=== PATIENT | male | born 1960 | race Caucasian/White ===

== ENCOUNTER 2020-05-29 08:14 | Emergency (ER) | payer BC, SELFPAY ==
--- NOTE | ~2020-05-29 | XR_ITS ---
EXAMINATION: XR knee LT 3V DATE: 05/29/2020 08:38 INDICATION: Left knee pain and swelling. TECHNIQUE: 3 views of left knee were obtained. COMPARISON: None. FINDINGS: Bone alignment is normal. No fracture. There is mild tricompartmental osteoarthritis. No kn ee joint effusion. There is subcutaneous soft tissue swelling overlying the tibial tubercle. IMPRESSION: 1. Mild left knee osteoarthritis. Reviewed, dictated and finalized at location A. 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
--- NOTE | 2020-05-29 08:20 | ED.GENADULT ---
HPI - General Adult General Chief complaint: Extremity Problem,Nontraumatic Stated complaint: lt knee pain Time Seen by Provider: 05/29/20 08:17 Source: patient Mode of arrival: ambulatory Limitations: no limitations History of Present Illness HPI narrative: 59 y/o male. PMH includes: HTN, HLD. Presents to clinic today, ambulatory via triage. CC is LT knee pain X past 1 week. He reports to have been kneeling on his knees while helping his son work on a vehicle , when he had a sharp pain shoot through his knee . Client states that since that time, he has had increased lower extremity swelling, redness, as well as pain shooting down his pantoja and bruising of his LT foot. He reports to have taken NSAIDs at home with mild relief. Pain is worse with prolonged ambulation or standing. No chest pain or dyspnea. No additional acute c/o upon PE. Related Data Home Medications Medication Instructions Recorded Confirmed aspirin 81 mg tablet,delayed 81 mg PO DAILY 01/30/20 02/19/20 release Allergies Allergy/AdvReac Type Severity Reaction Status Date / Time Penicillins Allergy Unknown Rash Verified 05/29/20 08:25 VICRYL STITCHES Allergy Unknown Unknown Uncoded 05/29/20 08:25 Review of Systems Review of Systems: Narrative: CONSTITUTIONAL: Denies fever, chills, sweats. EYES: Denies visual changes, redness, discharge. ENT: Denies rhinorrhea, congestion, sore throat, otalgia. CARDIOVASCULAR: Denies chest pain, palpitations, edema. RESPIRATORY: Denies dyspnea, wheezing, cough GASTROINTESTINAL: Denies abdominal pain, nausea, vomiting, diarrhea. GENITOURINARY: Denies dysuria, hematuria, abnormal discharge SKIN: Denies rash or itching. MUSCULOSKELETAL: Denies acute back pain, no myalgia. LT knee pain, redness, and swelling. NEUROLOGIC: Denies numbness, or focal weakness. PSYCHIATRIC: Denies anxiety or depression. All systems reviewed & are unremarkable except as noted in HPI and below (Above. ) [facility] Family History Family History Father Family history of elevated blood lipids Family history of coronary artery disease Family history of heart disease in male family member before age 55 Acute myocardial infarction Sibling Family history of malignant neoplasm of breast in first degree relative Family history of gallbladder disease Mother Family history of lung cancer Other Family history of cardiovascular disease Hypertension Social History Social History Smoking status: Current every day smoker Alcohol intake: current Exam Narrative: Exam Narrative: GENERAL: This is a well-nourished, well-developed patient, in no apparent distress. HEAD: normocephalic, atraumatic. EYES: PERRL. Sclera clear/white. Vision is grossly intact. EARS: External ears normal, auditory canals clear and without drainage, TMs normal without perforation. Hearing grossly intact. NOSE: External nose normal with no obvious nasal discharge, nares without redness, no rhinorrhea. THROAT: Mucous membranes moist, posterior pharynx clear. NECK: Neck supple, non-tender without lymphadenopathy, masses or thyromegaly. CARDIOVASCULAR: Regular rate and rhythm without murmurs, gallops, or rubs. Pedal pulse LLE palpable. RESPIRATORY: Clear to auscultation. Breath sounds equal bilaterally. No wheezes, rales, or rhonchi. GASTROINTESTINAL: Abdomen soft, non-tender, nondistended. Bowel sounds are active. No hepato-splenomegaly, or palpable masses. No guarding. SKIN: warm, intact with no suspicious lesions or rash, good texture and turgor. NEURO: awake, alert, and oriented to person, place and time. There were no obvious focal neurologic abnormalities. Steady gait EXTREMITIES: Patient is able to bear weight and ambulate with some pain. There is erythema overlying patella and distal patella. Area is cool to touch with what appears to be moderate joint
[2020-05-29 08:22] VITALS: BP 164/90; PULSE 86; RESP 16; TEMP 36.1; O2SAT 100
== END 2020-05-29 09:10 | disposition short-term general hospital (02) ==
PROVIDERS: Emergency Provider Nurse Practitioner Adult Health; PCP Family Medicine
DX: R60.0 Localized edema (principal); M25.562 Pain in left knee; S90.32XA Contusion of left foot, initial encounter; X58.XXXA Exposure to other specified factors, initial encounter; F17.200 Nicotine dependence, unspecified, uncomplicated; Z79.82 Long term (current) use of aspirin
CPT/HCPCS: 73562; 99213; G0463

== ENCOUNTER 2020-05-29 09:44 | Emergency (ER) | payer BC, SELFPAY ==
--- NOTE | ~2020-05-29 | US_ITS ---
EXAMINATION: US venous doppler [facility] EXAM DATE: 05/29/2020 10:27 INDICATION: Left leg swelling, bruising. TECHNIQUE: Multiple grayscale, color flow and Doppler images of the left lower extremity deep venous system were obtained and reviewed. There is no prior study for comparison. FINDINGS: The left common femoral, femoral and profunda veins demonstrate normal color flow, respirat ory variation, augmentation and compressibility. Compressibility, color flow confirmed within the le ft popliteal, posterior tibial, peroneal, and greater saphenous veins. IMPRESSION: 1. No left lower extremity deep venous thrombosis. Reviewed, dictated and finalized at location A. 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
[2020-05-29 10:17] VITALS: BP 169/84; PULSE 85; RESP 14; TEMP 36.3; O2SAT 98
--- NOTE | 2020-05-29 10:21 | ED.EXTPRO ---
HPI - Extremity Problem General Chief complaint: Extremity Problem,Nontraumatic <Pati De PA-C - Last Filed: 05/29/20 11:42> Stated complaint: leg pain/bruise/sent from [facility] <Pati De PA-C - Last Filed: 05/29/20 11:42> Time Seen by Provider: 05/29/20 10:06 <Pati De PA-C - Last Filed: 05/29/20 11:42> Source: patient <Pati De PA-C - Last Filed: 05/29/20 11:42> Mode of arrival: ambulatory <EMPERATRIZ Jeong Last Filed: 05/29/20 11:42> Limitations: no limitations <EMPERATRIZ Jeong Last Filed: 05/29/20 11:42> History of Present Illness HPI Narrative: Patient is a 59 y/o male with HTN, HLD with CC of LT knee pain for 1 week. He reports to have been kneeling on his knees while helping his son work on a vehicle , when he had a sharp pain shoot through his knee . He reports increased lower extremity swelling, redness, as well as pain shooting down his pantoja and bruising of his LT foot over the past week. He reports taking NSAIDs at home with mild relief of his discomfort. Pain worsens with prolonged ambulation and standing. Patient admits that he stands constantly throughout the day and is constantly climbing and standing due to working at a [place]. He states he very rarely sits or elevates his legs. Patient denies chest pain, shortness of breath, palpitations, lethargy, dizziness, fever, chills, nausea, vomiting, diarrhea. Patient reports taking a baby aspirin daily. Patient denies prior history of DVT or PE. Patient was sent to the ER for DVT evaluation after knee xray was negative for acute findings. <EMPERATRIZ Jeong Last Filed: 05/29/20 11:42> Related Data Home medications: Home Medications Medication Instructions Recorded Confirmed aspirin 81 mg tablet,delayed 81 mg PO DAILY 01/30/20 05/29/20 release <EMPERATRIZ Jeong Last Filed: 05/29/20 11:42> Allergies/Adverse reactions: Allergies Allergy/AdvReac Type Severity Reaction Status Date / Time Penicillins Allergy Unknown Rash Verified 05/29/20 08:25 VICRYL STITCHES Allergy Unknown Unknown Uncoded 05/29/20 08:25 <Pati De PA-C - Last Filed: 05/29/20 11:42> Review of Systems Review of Systems: Narrative: CONSTITUTIONAL: Denies fever, chills, or sweats. EYES: Denies visual changes, redness, or discharge. ENT: Denies rhinorrhea, congestion, sore throat, or otalgia. CARDIOVASCULAR: Denies chest pain, palpitations, or edema. RESPIRATORY: Denies cough or dyspnea. GASTROINTESTINAL: Denies abdominal pain, nausea, vomiting, or diarrhea. GENITOURINARY: Denies dysuria or hematuria. SKIN: Denies rash or itching. MUSCULOSKELETAL: Reports left leg swelling and pain Denies back pain, myalgia, or joint pain NEUROLOGIC: Denies headache, numbness, dizziness, or weakness. PSYCHIATRIC: Denies anxiety or depression. <Pati De PA-C - Last Filed: 05/29/20 11:42> PMFSH Family History Family History: Family History Father Family history of elevated blood lipids Family history of coronary artery disease Family history of heart disease in male family member before age 55 Acute myocardial infarction Sibling Family history of malignant neoplasm of breast in first degree relative Family history of gallbladder disease Mother Family history of lung cancer Other Family history of cardiovascular disease Hypertension <Pati De PA-C - Last Filed: 05/29/20 11:42> Social History Social History: Social History Smoking status: Current every day smoker Alcohol intake: current <Pati De PA-C - Last Filed: 05/29/20 11:42> Exam Narrative: Exam Narrative: GENERAL: Well-appearing, well-nourished, and in no acute distress. HEAD: Normocephalic, atraumatic. EYES: PERRLA and EOMI. ENT: Nares clear, no rhinorrhea or epistaxis. Mu
[2020-05-29 11:22] VITALS: RESP 18
== END 2020-05-29 11:23 | disposition home or self-care (01) ==
PROVIDERS: Emergency Provider General Practice; PCP Family Medicine
DX: R60.0 Localized edema (principal); I10 Essential (primary) hypertension; E78.5 Hyperlipidemia, unspecified; Z79.82 Long term (current) use of aspirin; F17.200 Nicotine dependence, unspecified, uncomplicated
CPT/HCPCS: 93971; 99284

== ENCOUNTER → 2020-10-30 07:56 | Outpatient (CLI) | payer BC, SELFPAY ==
--- NOTE | ~2020-10-30 | CT_ITS ---
EXAMINATION: CT lung screening DATE: 10/30/2020 08:42 INDICATION: Screening for lung cancer, personal hx of tobacco dependence TECHNIQUE: Computed tomography (CT) of the chest was performed without intravenous contrast. Addition al 3D reconstructions utilizing coronal maximum intensity projection (MIP) were performed. Automated exposure control and iterative reconstruction technique were employed. The dose-length product was 13 0.99 mGy-cm. COMPARISON: None FINDINGS: There are a few tiny calcified nodule in the right upper and lower lobes consistent with old granulom atous disease. Small cluster of a few 3 mm smaller solid and subselected nodules at the left apex. No pneumonia, pulmonary edema, pleural effusion or pneumothorax. Heart size is normal. No pericardial e ffusion. Atherosclerotic coronary artery calcifications. Thoracic aorta is normal in caliber. No path ologically enlarged thoracic lymphadenopathy. Diffuse hepatic steatosis. Mild thoracic spondylosis. M inimal likely physiologic anterior wedging at T12 and L1. IMPRESSION: 1. . Lung-RADS category 2: Benign appearance or behavior. Continue annual screening with noncontrast low-dose chest CT in 12 months. Reviewed, dictated and finalized at location A. IMPRESSION: 1. . Lung-RADS category 2: Benign appearance or behavior. Continue annual scree cesia with noncontrast low-dose chest CT in 12 months.
--- NOTE | ~2020-10-30 | XR_ITS ---
XR hip LT min 3V w AP pelvis DATE: 10/30/2020 08:54 INDICATION: Left hip pain TECHNIQUE: AP pelvis. AP and lateral views of left hip COMPARISON: None FINDINGS: Degenerative disc disease at L4-5 and L5-S1. No pelvic fracture or bone destruction. The pubic symphysis and sacroiliac joints are intact. Hip ekta nt spaces are symmetric. No left hip fracture or dislocation, avascular necrosis or bone destruction. Osteopenia. IMPRESSION: Osteopenia No pelvic or left hip significant radiographic abnormality Reviewed, dictated and finalized at location A.
--- NOTE | ~2020-10-30 | MR_ITS ---
EXAMINATION: MR renal wo con DATE: 10/30/2020 08:33 INDICATION: Complex left renal cyst. TECHNIQUE: Magnetic resonance imaging (MRI) of the abdomen was performed without intravenous contrast . Sequences included coronal T2-weighted SS-FSE, coronal and axial FS 2D-FIESTA, axial STIR FSE, axi al T2-weighted SS-FSE, axial T2-weighted FS SS-FSE, axial diffusion-weighted SE, axial dual-echo T1-w eighted FSPGR, and axial and coronal T1-weighted LAVA. Postcontrast axial T1-weighted LAVA images wer e obtained in a time course. Postcontrast coronal T1-weighted LAVA images were obtained. COMPARISON: MR abdomen dated 03/01/2017 and 01/01/2016 FINDINGS: Heart size is normal. No pericardial or pleural effusion. No significant interval change in multiple scattered subcentimeter T2 hyperintense cysts scattered throughout the liver. Pancreas, spleen and bi lateral adrenal glands are normal. Also without significant interval change in multiple bilateral ayo ogeneous and T2 hyperintense renal cysts. The largest in the right kidney measures 1.5 cm. The larges t in the left kidney measures 2.8 cm as part of a cluster of renal cysts versus component of a larger complex cystic mass together measuring 5.8 x 3.0 cm with identical measurements on the prior studies when including the largest cystic component. No interval change in size, appearance or configuration of the collection cystic lesions or of the multiple thin intervening cysts with no evident solid nod ular soft tissue component. Multiple diverticula along the visualized portion of the colon without ad jacent inflammatory change to suggest diverticulitis. No bowel obstruction. No pathologically enlarge d abdominal lymphadenopathy. Normal bone marrow signal throughout. IMPRESSION: 1. No change since 01/01/2016 in a 5.8 x 3.0 cm collection of cysts versus Bosniak 2F complex cystic m ass in the left kidney. Reviewed, dictated and finalized at location A. IMPRESSION: 1. No change since 01/01/2016 in a 5.8 x 3.0 cm collection of cysts versus Bosni ak 2F complex cystic mass in the left kidney.
== END ==
PROVIDERS: PCP Family Medicine; Visit Provider Family Medicine
DX: M25.552 Pain in left hip (principal); Z12.2 Encounter for screening for malignant neoplasm of respiratory organs; Z87.891 Personal history of nicotine dependence; N28.1 Cyst of kidney, acquired
CPT/HCPCS: 71271; 73502; 74181

== ENCOUNTER → 2020-11-25 06:57 | Outpatient (CLI) | payer BC, SELFPAY ==
--- NOTE | ~2020-11-25 | MR_ITS ---
EXAMINATION: MR hip LT wo con DATE: 11/25/2020 07:58 INDICATION: Left hip pain. TECHNIQUE: Magnetic resonance imaging (MRI) of the left hip was performed without intravenous contras t. Sequences included axial and coronal PD-weighted FS FSE and axial T1-weighted FSE of the pelvis. S equences of the hip included 2D FIESTA, T1-weighted fast GRE, and axial, coronal, and sagittal PD-bipin ghted FS FSE. COMPARISON: Left hip radiographs 10/30/2020, abdomen MRI 10/30/2020 FINDINGS: Bones/cartilage: There is 6 degrees levocurvature of lumbar spine. There is mild chronic height loss of L4 and L5 vert ebral bodies. No acute fracture. There is mild osteoarthritis of the hips. Small [id number] images of left hip demonstrate partial thickness cartilage loss. Labrum: There is a tear of the left acetabular labrum. Fluid: There is no hip joint effusion. There is mild bilateral trochanteric bursitis. Soft tissues: There is mild tendinopathy of the right hamstring origin moderate tendinopathy of the left hamstring origin. The iliopsoas tendons are normal. The gluteus minimus and gluteus medius tendons are normal. There is a small right inguinal hernia containing fat. IMPRESSION: 1. Mild osteoarthritis of the hips. 2. Tear of the left acetabular labrum. Reviewed, dictated and finalized at location A.
== END ==
PROVIDERS: PCP Family Medicine; Visit Provider Family Medicine
DX: M16.0 Bilateral primary osteoarthritis of hip (principal); S73.102A Unspecified sprain of left hip, initial encounter
CPT/HCPCS: 73721

== ENCOUNTER 2021-01-27 07:30 | Outpatient (RCR) | payer BC, SELFPAY ==
--- NOTE | 2020-12-28 15:43 | PTOPEVAL ---
Thank you for referring Theodore Avalos to [facility].? The patient is scheduled to be seen for therapy? 1 x/week for 5 weeks. Please review, sign, date and return this plan of care RADHA. I agree with and certify that the following plan of care is medically necessary. Referring Physician Date Attending Provider: Julio Ham MD Evaluation Information Diagnosis low back pain Onset years Additional Evaluation Detail States he has been dealing with pain most of his life. He works for a [email or web address] with very active and physical job. He is also very activity at home. Subjective Information He reports he has been having Query Text:As Reported By Patient/ low back issues for years that Family has progressed into left hip and posterior leg. He has increased pain with driving and walking. HE c/o numbness of baldomero feet. He also c/o intermittent knee pain. He has increased pain with turning motions. He has increased pain with bent over task. He has increased pain with lifting. Denies any exercise or stretching program. Diagnostic Tests X-Rays For This Problem Yes: Degenerative disc disease at L4-5 and L5-S1 MRI For This Problem Yes: tear of the left acetabular labrum Previous Treatments Previous Treatments For This Problem 6 yrs Pain Assessment Self Report Pain Assessment Left Hip(s) Reported Pain Level 1 Pain Description Aching,Dull,Radiating Pain Frequency Chronic,Continuous Greatest Pain Intensity 2 Pain Aggravating Factors Bending,Exercise/Activity, Lifting,Walking,Weight Bearing /Standing Bilateral Lower Back Reported Pain Level 0 Pain Frequency Chronic,Continuous Greatest Pain Intensity 3 Pain Aggravating Factors Bending,Exercise/Activity, Lifting Cervical and Lumbar ROM Lumbar Flexion Active Floor: Hands to: Lumbar Comments 75% trunk lateral flex with poor movement, 100% flex/ext with pain. Cervical and Lumbar Muscle Testing Lumbar Strength Upper Abdominal Strength 3 Fair Lower Abdominal Strength 3 Fair Upper Back Extension
--- NOTE | 2021-01-27 11:03 | PTOPEVAL ---
Thank you for referring Theodore Avalos to [facility].? Theodore has received 5 therapy visits to address his hip and back pain. He reports improved symptoms but continued hip pain which causes severe pain and weakness of left LE. Demonstrate improved body awareness, trunk and hip strength and joint motion without increased symptoms. He demonstrates indep with his HEP at this time. His goals are partially achieved. Will plan to DC skilled therapy services with Theodore to continue with home program. Please review, sign, date and return this discharge summary RADHA. I agree with and certify that the following plan of care is medically necessary. Referring Physician Date Attending Provider: Julio Ham MD Physical therapy discharge note Diagnosis low back pain Onset years Additional Evaluation Detail States he has been dealing with pain most of his life. He works for a [employer] with very active and physical job. He is also very activity at home. 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 His hip also went out when walking in the house. He does not fall, but he has no power in the leg. Denies any radiating numbness/ tingling into the left LE. He cont to have increased pain with driving and walking, and turning motions. He has increased pain with bent over task. His symptoms are very inconsistent with no pain or limitations for days or months, then severe pain that limits all activities. He tries to avoid heavy lifting whenever possible. He tends to use his right LE for most activities to avoid over use or increased strain on left LE. He is performing his HEP 3-4x/ wk. Pain Assessment Self Report Pain Assessment Left Hip(s) Reported Pain Level 0 Pain Description Aching,Dull Pain Frequency Chronic Greatest Pain Intensity 7 Pain Aggravating Factors Bending,Exercise/Activity, Walking Bilateral Lower Back Reported Pain Level 2 Pain Description Aching Pain F
== END 2021-03-17 11:50 | disposition home or self-care (01) ==
LOC: ANHPT 07:30
PROVIDERS: PCP Family Medicine; Visit Provider Orthopaedic Surgery
DX: M54.16 Radiculopathy, lumbar region (principal)
CPT/HCPCS: 97014; 97110; 97140; 97162; 97530; G0283

== ENCOUNTER → 2021-02-23 07:32 | Outpatient (CLI) | payer BC, SELFPAY ==
--- NOTE | ~2021-02-23 | MR_ITS ---
EXAMINATION: MR lumbar spine wo con DATE: 02/23/2021 08:40 INDICATION: Low back pain TECHNIQUE: Magnetic resonance imaging (MRI) of the lumbar spine was performed without intravenous con trast. Sequences included sagittal T2-weighted FSE, sagittal T2-weighted FS FSE, sagittal T1-weighted FSE, and axial T2-weighted FSE. COMPARISON: Lumbar spine radiographs dated 02/18/2021 FINDINGS: Alignment is normal. Vertebral body heights are normal. Normal marrow signal. 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 Disc heights are normal with mild disc desiccation at L4-L5. The conu s medullaris terminates at L2. There is normal signal in the caudal spinal cord. Paravertebral soft t issues are unremarkable. The following disc levels are specifically discussed: T12-L1: The disc does not extend beyond the endplate margin. There is minimal bilateral facet joint o steoarthritis. There is no neural foraminal stenosis. There is no central canal stenosis. L1-L2: The disc does not extend beyond the endplate margin. There is mild bilateral facet joint osteo arthritis. There is no neural foraminal stenosis. There is no central canal stenosis. L2-L3: Minimal left foraminal zone disc protrusion. There is mild bilateral facet joint osteoarthriti s. There is mild left neural foraminal stenosis. There is no central canal stenosis. L3-L4: Disc is minimally bulging There is moderate bilateral facet joint osteoarthritis. There is mil d bilateral neural foraminal stenosis. There is mild central canal stenosis. L4-L5: Disc is mildly bulging. There is moderate left and mild to moderate right facet joint osteoart hritis. There is moderate bilateral neural foraminal stenosis. There is mild central canal stenosis. L5-S1: Disc is minimally bulging. There is mild to moderate left and severe right facet joint osteoar thritis. There is mild right and mild to moderate left neural foraminal stenosis. There is no central canal stenosis. IMPRESSION: 1. Mild lumbar spondylosis. Reviewed, dictated and finalized at location A. IMPRESSION: 1. Mild lumbar spondylosis.
== END ==
PROVIDERS: PCP Family Medicine; Visit Provider Orthopaedic Surgery
DX: M47.896 Other spondylosis, lumbar region (principal)
CPT/HCPCS: 72148

== ENCOUNTER 2021-02-26 04:41 | Day surgery (SDC) | payer BC, SELFPAY ==
[2021-02-16 14:24] VITALS: BMI 28.3
[2021-02-26 06:32] VITALS: BP 164/73; PULSE 84; RESP 18; TEMP 36; O2SAT 98; BMI 28.1
[2021-02-26] MEDS: LACTATED RINGERS 1,000 ML 150 ML IV CONT (06:51)
--- NOTE | 2021-02-26 06:56 | WPDANESEPPF ---
Anes - Initial Pre Proc Eval Procedure: Operation Date: 02/26/21 07:30 Proposed Procedures p Screening Colonoscopy - Carter Nelson MD Date/Time: 02/26/21 06:56 Surgeon: Carter Nelson MD Pre Op Diagnosis: neoplasm screening Patient Data Age: 60 Gender: M Height: 1.8 m Weight: 91.5 kg Last Vital Signs Temp 36.0 C L 02/26/21 06:32 Pulse 84 02/26/21 06:32 Resp 18 02/26/21 06:32 BP 164/73 H 02/26/21 06:32 Pulse Ox 98 02/26/21 06:32 Allergies Allergy/AdvReac Type Severity Reaction Status Date / Time Penicillins Allergy Unknown Rash Verified 02/26/21 06:30 VICRYL STITCHES Allergy Unknown Unknown Uncoded 02/26/21 06:30 Home Medications Medication Instructions Recorded Confirmed Type aspirin 81 mg tablet,delayed 81 mg PO DAILY 01/30/20 02/18/21 History release atorvastatin 20 mg PO DAILY 02/16/21 02/18/21 History lisinopril 10 mg PO DAILY 02/16/21 02/18/21 History Patient hx anesthesia problems: none Family hx anesthesia problems: none PMFSH Past Medical History Medical History (Updated 02/18/21 @ 08:22 by Julio Ham MD) Abscess Arthritis, lumbar spine Infrapatellar bursitis of left knee Left leg pain Neoplasm of uncertain behavior of skin Obesity Strain of left soleus muscle Family History Family History Father Family history of elevated blood lipids Family history of coronary artery disease Family history of heart disease in male family member before age 55 Acute myocardial infarction Sibling Family history of malignant neoplasm of breast in first degree relative Family history of gallbladder disease Mother Family history of lung cancer Other Family history of cardiovascular disease Hypertension Social History Social History Smoking packs per day: 1.5 Smoking cigarettes per day: 30.0 Years smoked: 47 Smoking pack-years: 70.50 Smoking status: Current every day smoker Tobacco type: cigarettes Alcohol intake: current Drinks per week: 38 Living arrangements: alone Additional occupation/education comments: [facility] [employer] Gender identity (if verbalized by the patient): Male Spiritual care concerns: No Anes - Eval Final PreProcedure Day of Procedure 02/26/21 06:56 Patient weight: overweight Heart: regular rate and rhythm Lungs: clear to auscultation and normal air movement Airway: Mallampati scale class II Neurological: alert and oriented Last oral intake: >/= 8 hours ASA classification: II Emergent: no Anesthetic plan: proceed Anesthesia type and monitoring: general GIVS Informed Consent: The patient's anesthetic plan and its attendant risks and benefits were discussed with the patient/family/POA. Questions were solicited and answers provided to the satisfaction of the patient/family/POA.
--- NOTE | 2021-02-26 07:04 | P.HP_ITS ---
History of Present Illness History of Present Illness Consent: Risks, benefits, and alternatives have been discussed and questions answered. Patient agrees to proceed with procedure. Chief complaint: neoplasm screening Narrative: Theodore Avalos is a 60 year old male referred for colon cancer screening Review of Systems Review of Systems: All systems reviewed & are unremarkable except as noted in HPI and below PMFSH Past Medical History Medical History Abscess Arthritis, lumbar spine Infrapatellar bursitis of left knee Left leg pain Neoplasm of uncertain behavior of skin Obesity Strain of left soleus muscle Family History Family History Father Family history of elevated blood lipids Family history of coronary artery disease Family history of heart disease in male family member before age 55 Acute myocardial infarction Sibling Family history of malignant neoplasm of breast in first degree relative Family history of gallbladder disease Mother Family history of lung cancer Other Family history of cardiovascular disease Hypertension Social History Social History Smoking packs per day: 1.5 Smoking cigarettes per day: 30.0 Years smoked: 47 Smoking pack-years: 70.50 Smoking status: Current every day smoker Tobacco type: cigarettes Alcohol intake: current Drinks per week: 38 Living arrangements: alone Additional occupation/education comments: [employer] Gender identity (if verbalized by the patient): Male Spiritual care concerns: No Meds Home Medications and Allergies Home Medications Medication Instructions Recorded Confirmed Type aspirin 81 mg tablet,delayed 81 mg PO DAILY 01/30/20 02/18/21 History release atorvastatin 20 mg PO DAILY 02/16/21 02/18/21 History lisinopril 10 mg PO DAILY 02/16/21 02/18/21 History Allergies Allergy/AdvReac Type Severity Reaction Status Date / Time Penicillins Allergy Unknown Rash Verified 02/26/21 06:30 VICRYL STITCHES Allergy Unknown Unknown Uncoded 02/26/21 06:30 Vital Signs Vital Signs - 24 hr 02/26/21 06:32 Temperature 36.0 C L Pulse Rate 84 Respiratory Rate 18 Blood Pressure 164/73 H Pulse Oximetry 98 Exam Const: General: alert Orientation/consciousness: patient oriented x3 Resp: Auscultation: clear to auscultation bilaterally Cardio: Rhythm: regular rhythm GI: GI Palp: Yes Soft to palpation and No Tenderness to palpation present (GI) Neuro: General: patient oriented x3 Assessment and Plan Assessment and plan (1) Colon cancer screening: Code(s): Z12.11 - Encounter for screening for malignant neoplasm of colon Status: Acute Assessment and Plan: Colonoscopy with possible biopsy or polypectomy or cautery or injection of substances.
[2021-02-26 07:56] VITALS: BP 100/52; PULSE 76; RESP 26; O2SAT 95
[2021-02-26 08:06] VITALS: BP 126/67; PULSE 71; RESP 37; O2SAT 96
[2021-02-26 08:16] VITALS: BP 119/78; PULSE 69; RESP 34; O2SAT 97
== END 2021-02-26 08:26 | disposition home or self-care (01) ==
PROVIDERS: PCP Family Medicine; Visit Provider Internal Medicine Gastroenterology
PROC: 0DJD8ZZ Inspection of Lower Intestinal Tract, Via Natural or Artificial Opening Endoscopic (ICD-10-PCS; CPT 45378; principal; 2021-02-26 07:30)
DX: Z12.11 Encounter for screening for malignant neoplasm of colon (principal); D12.2 Benign neoplasm of ascending colon; D12.5 Benign neoplasm of sigmoid colon; K57.30 Diverticulosis of large intestine without perforation or abscess without bleeding; M47.816 Spondylosis without myelopathy or radiculopathy, lumbar region; E66.9 Obesity, unspecified; F17.200 Nicotine dependence, unspecified, uncomplicated
CPT/HCPCS: 45385; 88305; J2704; J7120

== ENCOUNTER → 2021-03-08 07:42 | Outpatient (CLI) | payer BC, SELFPAY ==
--- NOTE | ~2021-03-08 | US_ITS ---
EXAMINATION: US aorta DATE: 03/08/2021 08:08 INDICATION: Atherosclerotic aorta TECHNIQUE: Grayscale, color Doppler, and pulsed Doppler images of the aorta and common iliac arteries were obtained. COMPARISON: None. FINDINGS: The proximal aorta measures 2.9 cm in AP diameter. The mid aorta measures 2.4 cm. The distal aorta me asures 2.4 cm. The right common iliac artery measures 9 mm. The left common iliac artery measures 9 m m. IMPRESSION: 1. Normal caliber abdominal aorta. Reviewed, dictated and finalized at location A.
== END ==
PROVIDERS: PCP Family Medicine; Visit Provider Family Medicine
DX: I70.0 Atherosclerosis of aorta (principal)
CPT/HCPCS: 76775

== ENCOUNTER → 2021-08-02 12:14 | Outpatient (CLI) | payer OTHER, SELFPAY ==
--- NOTE | ~2021-08-02 | DEXA_ITS ---
Bone Density Report Name: JENNY FOREMAN Age: 61 Sex: Male Ethnicity: White Date of : 1960 Indication: prior fracture; Referring Provider: LOUIS SUAZO Study: Bone densitometry was performed. Exam Date: August 02, 2021 Accession number: [id number] Bone Density: Region BMD T-score Z-score Classification AP Spine (L1-L4) 1.068 -0.2 0.5 Normal Femoral Neck (Left) 0.746 -1.4 -0.4 Osteopenia Total Hip (Left) 1.007 -0.2 0.3 Normal Femoral Neck (Right) 0.800 -1.0 0.0 Normal Total Hip (Right) 0.987 -0.3 0.2 Normal Total Hip Mean 0.997 -0.3 0.3 Normal World Health Organization criteria for BMD impression classify patients as: Normal (T-score at or above -1.0), Osteopenia (T-score between -1.0 and -2.5), or Osteoporosis (T-score at or below -2.5). 10-year Fracture Risk(1): Major Osteoporotic Fracture 11% Hip Fracture 2.6% Reported Risk Factors: [place] (), Neck BMD=0.746, BMI=29.8, previous fracture, smoking, alcohol use (1) FRAX(R) Version 3.08. Fracture probability calculated for an untreated patient. Fracture probability may be lower if the patient has received treatment. Clinical Information Provided by Patient: Has had a low trauma fracture Smokes Has 3 or more alcoholic drinks per day Has used the following medications: Vitamin D Patient maximum height was 71 No regular weight bearing exercise Does not regularly consume dairy products Drinks caffeinated beverages Impression: The patient has low bone mass, based on the Left Femoral Neck T-score. The patient has an estimated ten-year risk of hip fracture of 2.6% and an estimated ten-year risk of major fracture of 11%, based on the WHO FRAX algorithm. The patient has risk factors, including: smoking, excessive alcohol use, previous fracture. Discussion: BONE DENSITY IS LOW AT ONE OR MORE SKELETAL SITES. This patient's lowest T-score is low at one or more skeletal sites. It meets the World Health Organization's (WHO) criteria for ?low bone mass? (T-score between -1.0 and -2.5). The patient's 10-year risk of fracture as calculated by FRAX is less than the threshold where pharmacological therapy is recommended by the National Osteoporosis Foundation (NOF). However, all treatment decisions require clinical judgment and consideration of individual patient factors, including patient preferences, comorbidities, previous drug use, risk factors not captured in the FRAX model (e.g., frailty, falls, vitamin D deficiency, increased bone turnover, interval significant decline in bone density) and possible under or overestimation of fracture risk by FRAX. The patient should follow a healthful lifestyle (good nutrition with adequate calcium and vitamin D, and appropriate weight-bearing exercise). Follow-Up: Consider repeating this study
== END ==
PROVIDERS: PCP Family Medicine; Visit Provider Family Medicine
DX: M85.88 Other specified disorders of bone density and structure, other site (principal); E55.9 Vitamin D deficiency, unspecified
CPT/HCPCS: 77080

== ENCOUNTER 2021-09-08 08:59 | Outpatient (CLI) | payer OTHER, SELFPAY ==
--- NOTE | 2021-09-08 09:08 | EST_ITS ---
Patient Info Name: Theodore Avalos Age: 61 years : 1960 Gender: Male Ht: 71 in Wt: 205 lbs BSA: 2.18 m2 HR: 114 bpm BP: 131 / 79 mmHg Technical Quality: Fair Exam Date: 09/08/2021 9:44 AM Exam Location: [facility] Exam Room: [facility] Patient Status: Outpatient Admit Date: 09/08/2021 Staff Ordering Physician: Olivia Godo MD Packaging Sales Representative: Melissa Damon RDCS Attending Provider: Olivia Good MD Exercise Technologist: Paulette Plascencia CT Exercise Physician: Chuckie Angeles DO Exam Type: CA stress echo Study Info Indications R06.02 - Shortness of breath Treadmill exercise stress echocardiogram is performed. Summary 1. 1. Negative Edson exercise stress test for ischemic ST changes by ECG criteria. However he achieved only 78% MPHR for age group which reduces sensitivity of the test. He took his last Metoprolol dose at midnight. 2. 2. Reduced functional capacity, achieving 9 METs of workload. 3. 3. Appropriate HR response to exercise. 4. 4. Appropriate HR recovery at 1 minute post exercise. 5. 5. Negative stress echocardiogram for ischemia by wall motion analysis. Fixed basal inferior and basal posterior wall hypokinesis suggest prior infarct or scar. 6. 6. Patient informed of the above results. Stress Echo Findings Left Ventricle Basal posterior and basal inferior vivar are hypokinetic. Appropriate increase in LV endocardial thickening with systole and appropriate augmentation of contractility with systole. Left Ventricle Normal LV systolic function, EF 55%. Basal posterior and basal inferior wall are hypokinetic. Protocol: Edson Stress ECG Details Stage: REST Duration (min): 2 min : 2 sec Speed (mph): 0.0 Grade (%): 0 HR (bpm): 78 SBP (mmHg): 131 DBP (mmHg): 79 METS: --- Stage: REST Duration (min): 26 min : 11 sec Speed (mph): 0.0 Grade (%): 0 HR (bpm): 74 SBP (mmHg): 131 DBP (mmHg): 79 METS: --- Stage: STAGE 1 Duration (min): 1 min : 0 sec Speed (mph): 1.7 Grade (%): 10 HR (bpm): 87 SBP (mmHg): 131 DBP (mmHg): 79 METS: --- Stage: STAGE 1 Duration (min): 2 min : 0 sec Speed (mph): 1.7 Grade (%): 10 HR (bpm): 89 SBP (mmHg): 131 DBP (mmHg): 79 METS: --- Stage: STAGE 1 Duration (min): 3 min : 0 sec Speed (mph): 1.7 Grade (%): 10 HR (bpm): 93 SBP (mmHg): 131 DBP (mmHg): 79 METS: --- Stage: STAGE 2 Duration (min): 1 min : 0 sec Speed (mph): 2.5 Grade (%): 12 HR (bpm): 95 SBP (mmHg): 178 DBP (mmHg): 95 METS: --- Stage: STAGE 2 Duration (min): 2 min : 0 sec Speed (mph): 2.5 Grade (%): 12 HR (bpm): 104 SBP (mmHg): 173 DBP (mmHg): 87 METS: --- Stage: STAGE 2 Duration (min): 3 min : 0 sec Speed (mph): 2.5 Grade (%): 12 HR (bpm): 106 SBP (mmHg): 173 DBP (mmHg): 87 METS: --- Stage: STAGE 3 Duration (min): 1 min : 0 sec Speed (mph): 3.4 Grade (%): 14 HR (bpm): 113 SBP (mmHg): 206 DBP (mmHg): 85 METS
== END 2021-09-08 09:00 | disposition home or self-care (01) ==
LOC: ANHCARD 09:00
PROVIDERS: PCP Family Medicine; Visit Provider Family Medicine
DX: E78.2 Mixed hyperlipidemia (principal); R06.02 Shortness of breath; R68.89 Other general symptoms and signs; F17.210 Nicotine dependence, cigarettes, uncomplicated; I10 Essential (primary) hypertension
CPT/HCPCS: 93351

== ENCOUNTER 2021-09-10 08:07 | Outpatient (CLI) | payer OTHER, SELFPAY ==
--- NOTE | ~2021-09-10 | US_ITS ---
EXAMINATION: US arterial ankle brachial ind DATE: 09/10/2021 08:39 INDICATION: Atherosclerotic heart disease of knik coronary arteries. Weakness in the legs. TECHNIQUE: Segmental pressures and plethysmographic and Doppler waveforms of the brachial and lower e xtremity arteries were obtained. COMPARISON: None. FINDINGS: Right and left brachial artery pressures of 141 mm Hg and 125 mm Hg, respectively, are concordant (no rmal difference <= 30 mmHg). The right ankle-brachial index (PHONG) is 1.18 (normal >= 0.9-1.0). The right great toe-brachial index (TBI) is 0.83 (normal >= 0.65). Arterial Doppler waveforms are biphasic at the ankle. The left PHONG is 1.10. The left TBI is 0.75. Arterial Doppler waveforms are biphasic at the ankle. IMPRESSION: 1. No significant arterial occlusive disease. Reviewed, dictated and finalized at location A. [employer]
== END 2021-09-10 08:08 | disposition home or self-care (01) ==
PROVIDERS: PCP Family Medicine; Visit Provider Family Medicine
DX: I25.10 Atherosclerotic heart disease of native coronary artery without angina pectoris (principal); I73.9 Peripheral vascular disease, unspecified; Z82.49 Family history of ischemic heart disease and other diseases of the circulatory system
CPT/HCPCS: 93922

== ENCOUNTER 2021-09-13 08:02 | Outpatient (CLI) | payer OTHER, SELFPAY ==
--- NOTE | 2021-09-13 15:36 | WPDPFTINT ---
PFT Procedure Performed PFT Procedure Performed Spirometry with Pre/Post Bronchodilator Plethysmography (Lung Vol) Diffusing Cap (DLCO) Flow Vol Loop PFT Interpretation This is a pulmonary function test with pre and post-bronchodilator spirometry, plethysmography and diffusing capacity. The test was performed and results interpreted in accordance with the 2019 and 2005 ATS/ERS Task Force guidelines respectively using the Global Lung Function Initiative-2012 reference equations. Patient demonstrated good effort and cooperation. Reproducibility criteria were met. The quality of the pre bronchodilator spirometry maneuver was Grade B and post bronchodilator spirometry maneuver was Grade A. Findings: Spirometry: The contour the expiratory flow tracing demonstrates and notched pattern in 1 of 3 efforts. The contour the expiratory flow tracing demonstrates and notched pattern in 3 of 3 post bronchodilator efforts. The contour the inspiratory flow tracing is normal. There is decreased maximal expiratory airflow at all lung volumes with concave expiratory flow tracing. The pre bronchodilator FVC is 3.17 L, 68% predicted. The pre bronchodilator FEV1 is 1.24 L, 35% predicted. The FEV1: FVC ratio is 39%. The post bronchodilator FVC is 3.79 L, representing a 19% increase. The post bronchodilator FEV1 is 1.61 L, representing a 30% increase. The post bronchodilator FEV1: FVC ratio is 42%. Plethysmography: The total lung capacity is 8.29 L, 115% predicted. The functional residual capacity 6.33 L, 168% predicted. The residual volume is 5.09 L, 217% predicted. Diffusing capacity: The diffusion capacity unadjusted for hemoglobin is 21.3, 76% predicted. The diffusing capacity adjusted for alveolar volume is 4.23, 103% predicted. Impression: There is a severe obstructive abnormality with significant improvement after inhaling a single dose of albuterol. The increase in residual volume is consistent with air trapping from an obstructive abnormality. Hyperinflation is present is demonstrated by the increase in functional residual capacity and is consistent with an obstructive abnormality. The diffusing capacity is normal. The contour the expiratory flow tracing demonstrates and notched pattern in 1 of 3 efforts. The contour the expiratory flow tracing demonstrates and notched pattern in 3 of 3 post bronchodilator efforts and this has been described with tracheobronchial malacia. clinical correlation is recommended. There are no prior studies for comparison
== END 2021-09-13 08:03 | disposition home or self-care (01) ==
PROVIDERS: PCP Family Medicine; Visit Provider Family Medicine
DX: R06.02 Shortness of breath (principal); F17.210 Nicotine dependence, cigarettes, uncomplicated
CPT/HCPCS: 94060; 94726; 94729

== ENCOUNTER → 2022-02-28 07:54 | Outpatient (CLI) | payer OTHER, SELFPAY ==
--- NOTE | ~2022-02-28 | CT_ITS ---
EXAMINATION:CT lung screening DATE: 02/28/2022 08:20 INDICATION: Tobacco use. Smoker who quit 1 year ago with 72 pack year history. TECHNIQUE: Computed tomography (CT) of the chest was performed without intravenous contrast. Automate d exposure control and iterative reconstruction technique were employed. The dose-length product (DLP ) was 183.68 mGy-cm. COMPARISON: Chest CT 10/30/2020 FINDINGS: There is mild atelectasis bilaterally. There is mild scarring at left lung apex. Calcified right lung nodules are consistent with old granulomatous disease. No pleural effusion. The heart size is normal. There are coronary artery calcifications. No pericardial effusion. There is mild bilatera l gynecomastia. There is mild thoracic spondylosis. IMPRESSION: 1. Lung-RADS category 2: Benign appearance or behavior. Continue annual screening with noncontrast lo w-dose chest CT in 12 months. Reviewed, dictated and finalized at location A. IMPRESSION: 1. Lung-RADS category 2: Benign appearance or behavior. Continue annual screeni ng with noncontrast low-dose chest CT in 12 months.
== END ==
PROVIDERS: PCP Family Medicine; Visit Provider Internal Medicine Pulmonary Disease
DX: Z12.2 Encounter for screening for malignant neoplasm of respiratory organs (principal); Z87.891 Personal history of nicotine dependence
CPT/HCPCS: 71271

== ENCOUNTER 2022-06-12 18:40 | Emergency (ER) | payer OTHER, SELFPAY ==
--- NOTE | ~2022-06-12 | XR_ITS ---
EXAM: XR wrist RT min 3V DATE: 06/12/2022 19:16 HISTORY: fall, right wrist pain . COMPARISON: None available. FINDINGS: Normal mineralization. No fracture or dislocation. No lytic or blastic lesion. Mild scatte red degenerative change. No erosion or periosteal change. Soft tissues within normal limits. IMPRESSION: No acute osseous finding in the right wrist. Reviewed, dictated and finalized at location K. [employer]
--- NOTE | 2022-06-12 19:24 | ED.GENADULT ---
HPI - General Adult General Chief complaint: Extremity Injury, Upper Stated complaint: rt hand/arm injury Source: patient Mode of arrival: ambulatory Limitations: no limitations History of Present Illness HPI narrative: Patient presents for evaluation of right wrist pain. He indicates he was standing at that this afternoon. He went to step down and fell. He landed on his right wrist. He did not hit his head nor did he have a loss of consciousness. He also hit his right knee but denies any significant pain or loss of range of motion in that joint. He states he has 2/10 pain at rest in right wrist. With movement his pain increases to 10/10. Pain radiates up the right arm and also into his hand. Denies paresthesias. He has not taken any medication for his pain. He would like to avoid taking any medication. He is right-hand dominant. No additional complaints or concerns. Related Data Home Medications Medication Instructions Recorded Confirmed aspirin 81 mg tablet,delayed 81 mg PO DAILY 01/30/20 06/12/22 release Allergies Allergy/AdvReac Type Severity Reaction Status Date / Time Penicillins Allergy Unknown Rash Verified 06/12/22 19:03 VICRYL STITCHES Allergy Unknown Unknown Uncoded 06/12/22 19:03 Review of Systems Review of Systems: CONSTITUTIONAL: Denies fever, chills, or sweats. EYES: Denies visual changes, redness, or discharge. ENT: Denies rhinorrhea, congestion, sore throat, or otalgia. CARDIOVASCULAR: Denies chest pain, palpitations, or edema. RESPIRATORY: Denies cough or dyspnea. GASTROINTESTINAL: Denies abdominal pain, nausea, vomiting, or diarrhea. GENITOURINARY: Denies dysuria or hematuria. SKIN: Denies rash or itching. MUSCULOSKELETAL: Reports pain in the right wrist. NEUROLOGIC: Denies headache, numbness, dizziness, or weakness. PSYCHIATRIC: Denies anxiety or depression. [facility] Past Medical History Medical History Abscess Actinic keratoses Allergic rhinitis Arthritis of left wrist primarily STT Arthritis, lumbar spine Eczematous dermatitis Infrapatellar bursitis of left knee Left leg pain Neoplasm of uncertain behavior of skin Osteopenia Shortness of breath on exertion Strain of left soleus muscle Surgical History Surgical History H/O repair of rotator cuff History of cholecystectomy Family History Family History Father Family history of elevated blood lipids Family history of coronary artery disease Family history of heart disease in male family member before age 55 Acute myocardial infarction Sibling Family history of malignant neoplasm of breast in first degree relative Family history of gallbladder disease Mother Family history of lung cancer Other Family history of cardiovascular disease Hypertension Social History Social History Smoking packs per day: 1.5 Smoking cigarettes per day: 30.0 Years smoked: 47 Smoking pack-years: 70.50 Smoking status: Former smoker Tobacco type: cigarettes Smoking end date: 12/31/21 Alcohol intake: current Additional occupation/education comments: [employer] Gender identity (if verbalized by the patient): Male Spiritual care concerns: No Exam Narrative: GENERAL: Well-appearing, well-nourished, and in no acute distress. HEAD: Normocephalic, atraumatic. EYES: PERRLA and EOMI. ENT: Nares clear, no rhinorrhea or epistaxis. Mucous membranes moist. Oropharynx without tonsillar hypertrophy exudate or other lesions. Bilateral TMs pearly gee nonbulging NECK: Supple. No adenopathy or masses. No carotid bruits or JVD CHEST: Clear to auscultation. No respiratory distress. No wheezes rales or rhonchi HEART: Regular rate and rhythm. No murmur heard. Normal perip
== END 2022-06-12 19:51 | disposition home or self-care (01) ==
PROVIDERS: Emergency Provider Nurse Practitioner; PCP Family Medicine
DX: S63.501A Unspecified sprain of right wrist, initial encounter (principal); W19.XXXA Unspecified fall, initial encounter; M19.032 Primary osteoarthritis, left wrist; M47.816 Spondylosis without myelopathy or radiculopathy, lumbar region; M85.80 Other specified disorders of bone density and structure, unspecified site; Z85.828 Personal history of other malignant neoplasm of skin; Z87.891 Personal history of nicotine dependence
CPT/HCPCS: 73110; 99213; G0463

== ENCOUNTER 2022-08-05 08:03 | Outpatient (CLI) | payer OTHER, SELFPAY ==
[2022-08-05 19:46] LABS: Alanine Aminotransferase 75 U/L (6-50); Albumin Level 3.8 g/dL (3.5-5.1); Alkaline Phosphatase 78 U/L (38-126); Anion Gap 5 mmol/L (8-16); Aspartate Amino Transferase 47 U/L (17-59); Bilirubin,Total 0.7 mg/dL (0.2-1.3); Blood Urea Nitrogen 15 mg/dL (9-20); Calcium 8.7 mg/dL (8.4-10.2); Carbon Dioxide 30 mmol/L (22-30); Chloride 96 mmol/L (98-107); Cholesterol 168 mg/dL (0-200); Estimated Glomerular Filt Rate > 60; Glucose 101 mg/dL (65-110); HDL Direct 38 mg/dL; Potassium 4.4 mmol/L (3.4-5.0); Sodium 131 mmol/L (137-145); Triglycerides 69 mg/dL (<150)
[2022-08-05 19:51] LABS: Basophils Absolute Auto 0.1 K/mm3 (0.0-0.1); Basophils Percent Auto 0.9 % (0.2-1.2); Eosinophils Absolute Auto 0.2 K/mm3 (0-0.3); Eosinophils Percent Auto 3.1 % (0-4.4); Hematocrit 44.6 % (42.0-52.0); Hemoglobin 15.2 g/dL (14.0-18.0); Immature Granulocyte Absolute 0.06 K/mm3 (0.00-0.031); Immature Granulocyte Percent A 0.9 % (0-0.5); Lymphocytes Absolute Auto 1.69 K/mm3 (0.9-3.2); Lymphocytes Percent Auto 24.9 % (18.3-44.2); Mean Corpuscular HGB Conc 34.1 g/dl (32-36); Mean Corpuscular Hemoglobin 33.5 pg (26-34); Mean Corpuscular Volume 98.2 fl (80-100); Monocytes Absolute Auto 0.8 K/mm3 (0.1-0.6); Monocytes Percent Auto 12.4 % (2.6-8.5); Neutrophils Absolute Auto 3.9 K/mm3 (1.3-6.7); Neutrophils Percent Auto 57.8 % (45.5-73.1); Platelet Count Result 194 k/mm3 (150-375); Red Blood Count 4.54 M/mm3 (4.6-6.20); Red Cell Distribution Width 12.8 % (11.5-14.5); White Blood Count 6.8 K/mm3 (4.5-10.0)
[2022-08-05 19:57] LABS: LDL Cholesterol Direct 108 mg/dL
== END 2022-08-05 08:04 | disposition home or self-care (01) ==
LOC: ANHGOSHLAB 08:04
PROVIDERS: PCP Family Medicine; Visit Provider Family Medicine
DX: I25.10 Atherosclerotic heart disease of native coronary artery without angina pectoris (principal)
CPT/HCPCS: 36415; 80053; 80061; 85025

== ENCOUNTER 2022-08-12 08:01 | Outpatient (CLI) | payer OTHER, SELFPAY ==
[2022-08-12 19:58] LABS: Alanine Aminotransferase 73 U/L (6-50); Alkaline Phosphatase 72 U/L (38-126); Anion Gap 5 mmol/L (8-16); Aspartate Amino Transferase 37 U/L (17-59); Bilirubin,Total 0.5 mg/dL (0.2-1.3); Blood Urea Nitrogen 20 mg/dL (9-20); Calcium 8.7 mg/dL (8.4-10.2); Carbon Dioxide 29 mmol/L (22-30); Chloride 96 mmol/L (98-107); Estimated Glomerular Filt Rate > 60; Glucose 100 mg/dL (65-110); Potassium 3.8 mmol/L (3.4-5.0); Sodium 130 mmol/L (137-145)
== END 2022-08-12 08:02 | disposition home or self-care (01) ==
LOC: ANHGOSHLAB 08:02
PROVIDERS: PCP Family Medicine; Visit Provider Family Medicine
DX: E87.1 Hypo-osmolality and hyponatremia (principal)
CPT/HCPCS: 36415; 80053

== ENCOUNTER 2022-08-24 08:10 | Outpatient (CLI) | payer OTHER, SELFPAY ==
[2022-08-24 21:12] LABS: Anion Gap 4 mmol/L (8-16); Blood Urea Nitrogen 14 mg/dL (9-20); Calcium 8.9 mg/dL (8.4-10.2); Carbon Dioxide 28 mmol/L (22-30); Chloride 98 mmol/L (98-107); Estimated Glomerular Filt Rate > 60; Glucose 107 mg/dL (65-110); Potassium 4.3 mmol/L (3.4-5.0); Sodium 130 mmol/L (137-145)
== END 2022-08-24 08:11 | disposition home or self-care (01) ==
LOC: ANHGOSHLAB 08:11
PROVIDERS: PCP Family Medicine; Visit Provider Family Medicine
DX: E87.1 Hypo-osmolality and hyponatremia (principal)
CPT/HCPCS: 36415; 80048

== ENCOUNTER → 2022-09-13 07:48 | Outpatient (CLI) | payer OTHER, SELFPAY ==
--- NOTE | ~2022-09-13 | US_ITS ---
EXAMINATION: US abdomen complete DATE: 09/13/2022 09:07 INDICATION: I10 - Essential (primary) hypertension TECHNIQUE: Multiple grayscale and Doppler ultrasound images of the abdomen were obtained. COMPARISON: MR renal 10/30/2020, MR abdomen 03/01/2017. FINDINGS: The visualized portions of the pancreas are normal. The liver is enlarged with increased ec hogenicity and normal echotexture. No surface nodularity. Normal hepatopetal flow in the main portal vein. Status post cholecystectomy. The common bile duct measures 4 mm. The visualized portions of the aorta and inferior vena cava are normal. The right kidney measures 12.8 x 5.8 x 6.3. The left kidney measures 12.7 x 6.6 x 6.4. The kidneys de monstrate normal parenchymal echogenicity. Simple right midpole cyst. Complex cystic collection in th e left renal midpole. There is no hydronephrosis. The spleen is normal in appearance and measures 12. 0 cm. 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 Echogenic liver, most commonly due to steatosis but also can be seen with hepatitis and fibrosis. Reviewed, dictated and finalized at location K. 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 Echogenic liver, most commonly due to steatosis but also can be se en with hepatitis and fibrosis.
== END ==
PROVIDERS: PCP Family Medicine; Visit Provider Physician Assistant
DX: E87.1 Hypo-osmolality and hyponatremia (principal); I10 Essential (primary) hypertension; K76.0 Fatty (change of) liver, not elsewhere classified
CPT/HCPCS: 76700

== ENCOUNTER 2022-09-16 08:03 | Outpatient (CLI) | payer OTHER, SELFPAY ==
[2022-09-16 19:30] LABS: Anion Gap 6 mmol/L (8-16); Blood Urea Nitrogen 12 mg/dL (9-20); Calcium 8.8 mg/dL (8.4-10.2); Carbon Dioxide 29 mmol/L (22-30); Chloride 99 mmol/L (98-107); Estimated Glomerular Filt Rate > 60; Glucose 102 mg/dL (65-110); Potassium 4.6 mmol/L (3.4-5.0); Sodium 134 mmol/L (137-145)
[2022-09-16 19:55] LABS: Prostate Specific Antigen 1.2 ng/mL (< OR = 4.0)
[2022-09-20 09:35] LABS: ANA Cascade Screen Negative (Negative)
[2022-09-20 13:08] LABS: Ceruloplasmin 29 mg/dL (18-36)
== END 2022-09-16 08:04 | disposition home or self-care (01) ==
LOC: ANHGOSHLAB 08:04
PROVIDERS: PCP Family Medicine; Visit Provider Physician Assistant
DX: Z12.5 Encounter for screening for malignant neoplasm of prostate (principal); K76.0 Fatty (change of) liver, not elsewhere classified; E87.1 Hypo-osmolality and hyponatremia; I10 Essential (primary) hypertension
CPT/HCPCS: 36415; 80048; 82390; 82728; 84153; 86038; G0103

== ENCOUNTER 2022-09-28 16:38 | Emergency (ER) | payer OTHER, SELFPAY ==
--- NOTE | 2022-09-28 16:41 | ED.SKABFB ---
HPI - Skin/Abscess/Foreign Bdy General Chief complaint: Skin/Abscess/Foreign Body Stated complaint: ABSCESS ON BACK Time Seen by Provider: 09/28/22 16:54 Source: patient and RN notes reviewed Mode of arrival: ambulatory Limitations: dementia History of Present Illness HPI narrative: 62-year-old male presents concern for possible abscess on his back. He reports he has had a cyst on his back for more than a year. Reports that has not been painful up until last couple nasal it began to get red and tender. He denies any drainage from the area. He denies any general malaise, fever, chills, sweats. Reports he has an appointment with his primary care doctor on Monday that it was becoming too painful to weight. MD complaint: other (Redness) Related Data Home Medications Medication Instructions Recorded Confirmed aspirin 81 mg tablet,delayed 81 mg PO DAILY 01/30/20 09/28/22 release Allergies Allergy/AdvReac Type Severity Reaction Status Date / Time suture Allergy Intermediate infection Verified 09/28/22 16:53 Penicillins Allergy Unknown Rash Verified 09/28/22 16:53 hydrochlorothiazide AdvReac Mild hyponatremi Verified 09/28/22 16:53 a Review of Systems Review of Systems: CONSTITUTIONAL: Denies malaise, chills, sweats, or fever. EYES: Denies redness, or discharge. ENT: Denies rhinorrhea, congestion, swollen lips, swollen tongue CARDIOVASCULAR: Denies chest pain, palpitations, or edema. RESPIRATORY: Denies cough or dyspnea. GASTROINTESTINAL: Denies abdominal pain, nausea, vomiting SKIN: Reports redness, tenderness on his back. Denies purulent drainage, vesicles, bullae, numbness, pain beyond proportion MUSCULOSKELETAL: Denies joint pain or myalgia. NEUROLOGIC: Denies headache. All systems reviewed & are unremarkable except as noted in HPI and below PMFSH Past Medical History Medical History Abscess Actinic keratoses Allergic rhinitis Arthritis of left wrist primarily STT Arthritis, lumbar spine Eczematous dermatitis Infrapatellar bursitis of left knee Left leg pain Neoplasm of uncertain behavior of skin Osteopenia Shortness of breath on exertion Strain of left soleus muscle Surgical History Surgical History H/O repair of rotator cuff History of cholecystectomy Family History Family History Father Family history of elevated blood lipids Family history of coronary artery disease Family history of heart disease in male family member before age 55 Acute myocardial infarction Sibling Family history of malignant neoplasm of breast in first degree relative Family history of gallbladder disease Mother Family history of lung cancer Other Family history of cardiovascular disease Hypertension Social History Social History Smoking packs per day: 1.5 Smoking cigarettes per day: 30.0 Years smoked: 47 Smoking pack-years: 70.50 Smoking status: Former smoker Tobacco type: cigarettes Smoking end date: 12/31/21 Alcohol intake: current Substance use type: does not use Living arrangements: alone Occupation/Education: occupation Additional occupation/education comments: [employer] Gender identity (if verbalized by the patient): Male Spiritual care concerns: No Comments At time of signature, agree with nursing past medical, surgical, social and family history. There is no relevant family history pertinent to the presenting complaint Exam Narrative: GENERAL: Well-appearing, well-nourished, and in no acute distress. HEAD: Normocephalic, atraumatic. EYES: PERRLA, conjunctivae clear ENT: Mucous membranes moist. NECK: Supple. No lymphadenopathy CHEST: Clear to auscultation. No respiratory distress. HEART: Regular rate and rhythm. SKIN: W
[2022-09-28 16:44] VITALS: BP 141/77; PULSE 75; RESP 16; TEMP 36.9; O2SAT 98
== END 2022-09-28 17:10 | disposition home or self-care (01) ==
PROVIDERS: Emergency Provider Nurse Practitioner; PCP Family Medicine
DX: L03.312 Cellulitis of back [any part except buttock and flank] (principal); Z87.891 Personal history of nicotine dependence; M19.032 Primary osteoarthritis, left wrist; M47.816 Spondylosis without myelopathy or radiculopathy, lumbar region; M85.80 Other specified disorders of bone density and structure, unspecified site
CPT/HCPCS: 99213; G0463

== ENCOUNTER → 2022-10-10 07:35 | Outpatient (CLI) | payer OTHER, SELFPAY ==
--- NOTE | ~2022-10-10 | MR_ITS ---
EXAMINATION: MR renal wo/w con DATE: 10/10/2022 08:40 INDICATION: Renal lesion TECHNIQUE: Magnetic resonance imaging (MRI) of the abdomen was performed without and with 15 mL Multi parveen intravenous contrast. Sequences included coronal T2-weighted SS-FSE, coronal and axial FS 2D-F IESTA, axial STIR FSE, axial T2-weighted SS-FSE, axial T2-weighted FS SS-FSE, axial diffusion-weighte d SE, axial dual-echo T1-weighted FSPGR, and axial and coronal T1-weighted LAVA. Postcontrast axial T 1-weighted LAVA images were obtained in a time course. Postcontrast coronal T1-weighted LAVA images w ere obtained. COMPARISON: Ultrasound dated 09/23/2022 and MRI dated 10/30/2020, 03/01/2017 and 01/01/2016 FINDINGS: Heart size is normal. No pericardial effusion. Trace bilateral pleural effusions. There are multiple subcentimeter T2 hyperintense nonenhancing hepatic cysts the largest measuring up to 9 mm in maximal diameter. Bilateral simple appearing T2 hyperintense nonenhancing renal cysts the largest on the righ t measuring up to 1.7 cm. The largest cystic lesion on the left measures 2.6 cm as part of an unchang ed cluster of renal cysts versus a component of a larger complex cystic mass together measuring 5.5 x 3.0 cm which is unchanged in size or appearance when compared with earlier MRI studies dating back t o 01/01/2016. Again seen is discernible enhancement along a few internal septations measuring <3 mm in thickness and without nodular enhancing soft tissue component consistent with a Bosniak 2F cystic re nal lesion. Spleen, pancreas and bilateral adrenal glands are normal. Visualized portions of the anthony ls are unremarkable. No pathologically enlarged abdominal or upper pelvic lymphadenopathy. Mild lumba r levocurvature with mild spondylosis. IMPRESSION: 1. No interval change in a 5.5 x 3.0 cm collection of cysts versus Bosniak 2F complex cystic mass in the left kidney. Reviewed, dictated and finalized at location A. IMPRESSION: 1. No interval change in a 5.5 x 3.0 cm collection of cysts versus Bosniak 2F c omplex cystic mass in the left kidney.
== END ==
PROVIDERS: PCP Family Medicine; Visit Provider Physician Assistant
DX: N28.89 Other specified disorders of kidney and ureter (principal)
CPT/HCPCS: 74183; A9577

== ENCOUNTER 2023-02-22 09:14 | Outpatient (CLI) | payer OTHER, SELFPAY ==
--- NOTE | 2023-02-28 16:20 | WPDSLEEPSTUD ---
Sleep Study Date of Study: 02/22/23 Ordering Provider: Donavon Bell MD Interpreting Physician: Florida Linder DO Sleep Study Type: Split Polysomnogram Height: 1.8 m Weight: 108.862 kg Body Mass Index: 33.5 Neck Circumference (inches): 17.5 [place]: 6 Reason for Sleep Study Abnormal nocturnal oximetry Sleep History The patient is a 62-year-old male that had a split study ordered by his business development intern for evaluation of sleep apnea after having an abnormal nocturnal oximetry. The patient denies awakening from sleep short of breath. He rarely awakens at night with heartburn, belching or cough. He frequently snores but it is never loud that others complain. He denies having trouble sleeping when he has a cold. He denies waking up gasping for air throughout the night. He denies having breathing problems at night observed by himself or others. He denies sweating excessively at night. He denies having heart palpitations or irregular heartbeats during the night. He denies falling asleep during the day and while driving. He denies sleep paralysis, cataplexy and hypnagogic / hypnopompic hallucinations. He denies having trouble at school or work due to sleepiness. He denies feeling afraid of going to sleep. He denies having nightmares. He occasionally remembers his dreams. He denies having thoughts racing through his mind. He denies feeling sad, depressed or anxious. He denies having muscular tension. He denies noticing parts of his body jerk. He denies kicking during the night. He denies having crawling and aching feelings in his legs and denies having leg pain during the night. He denies grinding his teeth during sleep and denies awakening with morning jaw pain. He is frequently bothered by pain during the day but rarely awakened by pain during the night. He occasionally wakes up feeling stiff in the morning. He rarely wakes up with sore or achy muscles. He occasionally wakes up with pain in the neck, spine and other joints. He goes to bed between 9-10 p.m. on both weekdays and weekends. It takes him 5 minutes to fall asleep. He wakes up 1-2 times throughout the night to urinate and is able to fall back asleep immediately. He wakes up at 5:00 a.m. on weekdays and between 5-6:30 a.m. on weekends. He typically gets 7-8 hours of sleep per night. He does not stay in bed after waking up in the morning. He currently lives with his , daughter and grand kids. He does not consume any caffeinated beverages within 2 hours of bedtime. He will engage in physical exercise before bedtime. He will watch television before falling asleep. He denies taking naps in afternoon or the evening. He has 1 pot of coffee per day. His alcohol consumption varies daily. He quit smoking 13 months ago. He denies recreational drug use. FOR[facility]LY [facility] Past Medical History Medical History Abscess Actinic keratoses Allergic rhinitis Arthritis of left wrist primarily STT Arthritis, lumbar spine Eczematous dermatitis Infrapatellar bursitis of left knee Left leg pain Neoplasm of uncertain behavior of skin Osteopenia Shortness of breath on exertion Strain of left soleus muscle Surgical History Surgical History H/O repair of rotator cuff History of cholecystectomy Family History Family History Father Family history of elevated blood lipids Family history of coronary artery disease Family history of heart disease in male family member before age 55 Acute myocardial infarction Sibling Family history of malignant neoplasm of breast in first degree relative Family history of gallbladder disease Mother Family history of lung cancer Other Family history of cardiovascular disease Hypertension Social History Social History (Reviewed 02/28/23 @ 16:21 by Florida Katz
[2023-02-28 16:38] VITALS: BMI 33.5
== END 2023-02-23 05:46 | disposition home or self-care (01) ==
LOC: ANHCSM 09:15
PROVIDERS: PCP Family Medicine; Visit Provider Internal Medicine Pulmonary Disease
DX: G47.33 Obstructive sleep apnea (adult) (pediatric) (principal); G47.61 Periodic limb movement disorder; G47.10 Hypersomnia, unspecified; Z87.891 Personal history of nicotine dependence
CPT/HCPCS: 95810; 95811

== ENCOUNTER → 2023-03-24 12:42 | Outpatient (CLI) | payer OTHER, SELFPAY ==
--- NOTE | ~2023-03-24 | CT_ITS ---
EXAMINATION: CT lung screening DATE: 03/24/2023 12:54 INDICATION: Personal history of nicotine dependence TECHNIQUE: Computed tomography (CT) of the chest was performed without intravenous contrast. The dose -length product was 228.91 mGy-cm. Automated exposure control and iterative reconstruction technique were employed. COMPARISON: CT dated 02/28/2022 FINDINGS: No significant pleural or pericardial effusion. Heart size normal. There is atherosclerosis of the aorta and coronary arteries. Fatty infiltration of the liver. No thoracic lymphadenopathy. Th ere is evidence for chronic granulomatous disease. There is emphysema. No endobronchial lesions. No p neumothorax. There are small 2 mm upper lobe nodules which are not clearly calcified. No acute osseou s abnormality. IMPRESSION: 1. Lung-RADS category 2: Benign appearance or behavior. Continue annual screening with noncontrast lo w-dose chest CT in 12 months. Reviewed, dictated and finalized at location B. IMPRESSION: 1. Lung-RADS category 2: Benign appearance or behavior. Continue annual screeni ng with noncontrast low-dose chest CT in 12 months.
== END ==
PROVIDERS: PCP Family Medicine; Visit Provider Internal Medicine Pulmonary Disease
DX: Z12.2 Encounter for screening for malignant neoplasm of respiratory organs (principal); Z87.891 Personal history of nicotine dependence
CPT/HCPCS: 71271

== ENCOUNTER 2023-04-12 07:56 | Outpatient (CLI) | payer OTHER, SELFPAY ==
[2023-04-12 19:19] LABS: Alanine Aminotransferase 71 U/L (6-50); Alkaline Phosphatase 83 U/L (38-126); Anion Gap 7 mmol/L (8-16); Aspartate Amino Transferase 45 U/L (17-59); Bilirubin,Total 0.7 mg/dL (0.2-1.3); Blood Urea Nitrogen 12 mg/dL (9-20); Calcium 8.9 mg/dL (8.4-10.2); Carbon Dioxide 27 mmol/L (22-30); Chloride 99 mmol/L (98-107); Cholesterol 176 mg/dL (0-200); Estimated Glomerular Filt Rate > 60; Glucose 107 mg/dL (65-110); HDL Direct 36 mg/dL; Potassium 4.4 mmol/L (3.4-5.0); Sodium 133 mmol/L (137-145); Triglycerides 91 mg/dL (<150)
[2023-04-12 19:30] LABS: LDL Cholesterol Direct 114 mg/dL
[2023-04-12 19:43] LABS: Basophils Absolute Auto 0.1 K/mm3 (0.0-0.1); Basophils Percent Auto 0.9 % (0.2-1.2); Eosinophils Absolute Auto 0.1 K/mm3 (0-0.3); Hematocrit 43.2 % (42.0-52.0); Hemoglobin 14.2 g/dL (14.0-18.0); Immature Granulocyte Absolute 0.07 K/mm3 (0.00-0.031); Immature Granulocyte Percent A 1.1 % (0-0.5); Lymphocytes Absolute Auto 1.56 K/mm3 (0.9-3.2); Lymphocytes Percent Auto 23.8 % (18.3-44.2); Mean Corpuscular HGB Conc 32.9 g/dl (32-36); Mean Corpuscular Hemoglobin 32.2 pg (26-34); Mean Platelet Volume 9.6 fl (7.4-10.4); Monocytes Absolute Auto 0.6 K/mm3 (0.1-0.6); Monocytes Percent Auto 9.8 % (2.6-8.5); Neutrophils Absolute Auto 4.1 K/mm3 (1.3-6.7); Neutrophils Percent Auto 62.4 % (45.5-73.1); Platelet Count Result 195 k/mm3 (150-375); Red Blood Count 4.41 M/mm3 (4.6-6.20); Red Cell Distribution Width 13.1 % (11.5-14.5); White Blood Count 6.6 K/mm3 (4.5-10.0)
[2023-04-12 19:49] LABS: Prostate Specific Antigen 1.1 ng/mL (< OR = 4.0)
== END 2023-04-12 07:57 | disposition home or self-care (01) ==
LOC: ANHGOSHLAB 07:58
PROVIDERS: PCP Family Medicine; Visit Provider Physician Assistant
DX: E55.9 Vitamin D deficiency, unspecified (principal); E78.2 Mixed hyperlipidemia; F17.200 Nicotine dependence, unspecified, uncomplicated; G47.33 Obstructive sleep apnea (adult) (pediatric); I10 Essential (primary) hypertension; Z79.899 Other long term (current) drug therapy; Z12.5 Encounter for screening for malignant neoplasm of prostate
CPT/HCPCS: 36415; 80053; 80061; 84153; 84443; 85025; G0103

== ENCOUNTER 2024-03-06 09:32 | Outpatient (CLI) | payer OTHER, SELFPAY ==
--- NOTE | ~2024-03-06 | MR_ITS ---
EXAMINATION: MR abdomen wo/w con DATE: 03/06/2024 10:38 INDICATION: Renal mass TECHNIQUE: Magnetic resonance imaging (MRI) of the abdomen was performed without and with 20 mL Multi parveen intravenous contrast. Sequences included coronal T2-weighted SS-FSE, coronal and axial FS 2D-F IESTA, axial STIR FSE, axial T2-weighted SS-FSE, axial T2-weighted FS SS-FSE, axial diffusion-weighte d SE, axial dual-echo T1-weighted FSPGR, and axial and coronal T1-weighted LAVA. Postcontrast axial T 1-weighted LAVA images were obtained in a time course. Postcontrast coronal T1-weighted LAVA images w ere obtained. COMPARISON: 10/10/2022 FINDINGS: Heart size is normal. No pericardial or pleural effusion. There are multiple subcentimeter T2 hyperin tense cysts scattered throughout the liver. There are also multiple bilateral simple appearing T2 hyp erintense nonenhancing renal cysts the largest on the right measuring 1.8 cm. Again seen is a collect ion of cysts versus Bosniak 2F multi septated cystic lesion in the anterior left kidney which measure s approximately 5.3 x 1.9 cm. There is new posterior layering T1 hyperintense blood/proteinaceous flu id in the largest cyst/cystic component of this lesion. The internal septations remain <2 mm in thick ness with discernible enhancement but no evident solid nodular soft tissue component. Spleen, pancrea s and bilateral adrenal glands are normal. Visualized portion of the bowels are unremarkable includin g a normal appendix. No pathologically enlarged abdominal or upper pelvic lymphadenopathy. Bladder is normal. Mild lumbar levocurvature with mild spondylosis. IMPRESSION: 1. New proteinaceous fluid/hemorrhage within one of the cystic components of a 5.3 x 1.9 cm collectio n of cysts versus Bosniak 2F complex cystic mass in the left kidney. Reviewed, dictated and finalized at location A. IMPRESSION: 1. New proteinaceous fluid/hemorrhage within one of the cystic components of a 5.3 x 1.9 cm collection of cysts versus Bosniak 2F complex cystic mass in the l eft kidney.
== END 2024-03-06 09:33 | disposition home or self-care (01) ==
PROVIDERS: PCP Family Medicine; Visit Provider Urology
DX: N28.89 Other specified disorders of kidney and ureter (principal)
CPT/HCPCS: 74183; A9577

== ENCOUNTER 2024-04-22 08:16 | Outpatient (CLI) | payer OTHER, SELFPAY ==
--- NOTE | ~2024-04-22 | CT_ITS ---
CT Scan of the Chest without Contrast: Clinical Indication: Lung cancer screening, nicotine dependence Technique: Contiguous sections were acquired throughout the chest without intravenous contrast. Dose reduction technique was used on this scan by utilizing automated exposure control and iterative recon struction technique. The dose-length product (DLP) was 218.41 mGy-cm. COMPARISON: 03/24/2023 Findings: There is no evidence of any significant mediastinal, hilar or axillary lymphadenopathy. Coronary michelle ry calcifications are present. There is no evidence of pleural or pericardial effusion. The lungs are clear. No pulmonary nodules or infiltrates are noted. Images through the upper abdomen reveal no abnormalities. Impression: Lung RADS 1: Negative. 12 month follow-up screening CT advised. Reviewed, dictated and finalized at location . Impression: Lung RADS 1: Negative. 12 month follow-up screening CT advised.
== END 2024-04-22 08:17 | disposition home or self-care (01) ==
LOC: MICIMG 08:17
PROVIDERS: PCP Family Medicine; Visit Provider Internal Medicine Pulmonary Disease
DX: Z12.2 Encounter for screening for malignant neoplasm of respiratory organs (principal); Z87.891 Personal history of nicotine dependence
CPT/HCPCS: 71271

== ENCOUNTER 2024-09-09 07:58 | Outpatient (CLI) | payer OTHER, SELFPAY ==
[2024-09-09 09:04] LABS: Anion Gap 11 mmol/L (4-12); Blood Urea Nitrogen 19 mg/dL (9-20); Calcium 9.5 mg/dL (8.4-10.2); Carbon Dioxide 25 mmol/L (22-30); Chloride 103 mmol/L (98-107); Estimated Glomerular Filt Rate > 60; Glucose 109 mg/dL (65-110); Potassium 4.3 mmol/L (3.4-5.0); Sodium 139 mmol/L (137-145)
== END 2024-09-09 07:59 | disposition home or self-care (01) ==
LOC: ANHSURGERY 08:03
PROVIDERS: Anesthesiology; PCP Family Medicine; Visit Provider Plastic Surgery
DX: I10 Essential (primary) hypertension (principal)
CPT/HCPCS: 36415; 80048

== ENCOUNTER 2024-09-18 00:20 | Day surgery (SDC) | payer OTHER, SELFPAY ==
--- NOTE | 2024-08-30 12:04 | PC.NURSE ---
Report to the Outpatient Waiting Room, entrance under the green pavilion located off [facility], at time _8:30 am on date _09/18/24 . Planned Procedure Time: __10:30 am .? Time changes happen often and if your time is changed the preop area will call you the afternoon before. - You and your visitor will be asked to self-screen and do not enter if you have any COVID symptoms. Please call surgeon if you need to reschedule. - A mask is optional within the hospital at this time. NOTHING TO EAT OR DRINK 8 HOURS PRIOR TO SURGERY PER DR CORTEZ ( 2:30 AM) Take only the following medications with a SIP of water on the morning of surgery: __TRELEGY ELLIPTA INHALER DO NOT STOP ANY OF YOUR OTHER PRESCRIPTION MEDICATIONS PRIOR TO SURGERY EXCEPT THE FOLLOWING Hold all vitamins and supplements for 3 days per anesthesiologist. Medications to discontinue per physician ___ASPIRIN PER DR CORTEZ Please no make-up, nail pakistani, hairspray, perfume, deodorant, or body powder the day of surgery.? No jewelry (including any body piercings) or valuables the day of surgery, leave them at home.? Please take a shower or bath the night before, or the morning of, surgery with an antibacterial soap.? Wear comfortable, loose fitting clothing.? Children are encouraged to wear pajamas. - Jewelry must be removed prior to entering the operating room.? Rings and piercings that are not removed may be cut off. - The hospital will not accept responsibility for valuables.? - Please leave all valuables, including medications, at home the day of surgery. If you are going home after surgery, a licensed front loader residential driver must drive you home.? - NO public transportation without another adult if you receive anesthesia. - We recommend that an adult stay with you for 24 hours following discharge. - We also recommend that you do not drive, make important decision, drink alcoholic beverages, or take any drugs that were not prescribed by your health care provider for at least 24 hours after your discharge time. Follow any additional instructions given to you from your surgeon. Telephone instructions given to _PATIENT_AND WIFE and asked if any additional questions and then verbalized understanding. Patient advised to call surgeon office or pre surgery nurse liaison [phone] if any additional questions.
[2024-08-30 12:24] VITALS: BMI 34.0
--- OUTSIDE RECORDS SUMMARY | 2024-09-18 00:22 | XMS_ITS | Clinical Summary ---
Author Organization [facility] Address [address] [place] [id number] Care Team Providers Care Stock Supervisor Name Role Phone Leonard Good MD Primary Care Provider [phone] Social History Tobacco Use Types Packs/Day Years Used Date Smoking Tobacco: Never Assessed Sex and Gender Information Value Date Recorded Sex Assigned at Not on file Legal Sex Male 10:18 AM CDT Gender Identity Not on file Sexual Orientation Not on file Plan of Treatment Health Maintenance Due Date Last Done Comments Colorectal Cancer Screening Colonoscopy (10 Years) 1958 PHQ-2 (Physician [place]) 1970 Hepatitis C 1976 Zoster Vaccines (1 of 2) 2008 Annual Medicare Wellness Visit 2023 COVID-19 Vaccine (3 - 2023-2 5 season) 2024 06/20/2023, 09/14/2020 Influenza Adult (#1) 2024 06/20/2023, 05/10/2022, 06/08/2021 PHQ-2 (Physician [place]) 07/10/2024 DTaP, Tdap and Td Vaccines ( 2 - Td or Tdap) 11/01/2026 11/01/2016 RSV Immunization or 60+ Years (1 - 1-dose 75+ series) 2033 Pneumococcal Vaccine: 65+ Years Completed 06/20/2023, 05/10/2022 Meningococcal B Vaccine Aged Out No l onger eligible based on patient's age to complete this topic Meningococcal Vaccine Aged Out No ghazal jhonathan eligible based on patient's age to complete this topic RSV Immunizations Under 20 Months Aged Out No longer eligible b ased on patient's age to complete this topic Insurance [employer] Care Teams Stock Supervisor Relationship Specialty Start Date End Date Leonard Good MD [facility] [address] [id number] PCP - General FAMILY PRACTICE 05/16/24
--- OUTSIDE RECORDS SUMMARY | 2024-09-18 00:22 | XMS_ITS | Referral Summary ---
Author Organization [facility] [place] [address] Address [address] [place] [address] Care Team Providers Care Carbon Brushes Assembler Name Role Phone Olivia Good MD Primary Care Provider + Allergies Active Allergy Reactions Criticality Noted Date Comments Penicillins Rash Medium 12/01/2021 PCN allergy form filled out Medications aspirin 81 mg chewable tablet Take 1 tablet (81 mg total) by mouth daily Active Trelegy Ellipta 200-62.5-25 mcg inhaler INHALE 1 PUFF BY MOUTH EVERY 24 HOURS. RINSE MOUTH AFTER USE 2 Active losartan (COZAAR) 100 mg tablet Take 1 tablet (100 mg total) by mouth nightly 90 tablet 6 4 Active furosemide (LASIX) 20 mg tablet Take 1 tablet (20 mg total) by mouth daily 30 tablet 4 05/24/20 Active empagliflozin (JARDIANCE) 10 mg tablet Take 1 tablet (10 mg total) by mouth daily 30 tablet 11 4 Active atorvastatin (LIPITOR) 80 mg tablet Take 1 tablet by mouth nightly 90 tablet 5 Active atorvastatin (LIPITOR) 80 mg tablet Take 1 tablet (80 mg total) by mouth nightly 90 tablet 6 3 08/23/19 Discontinued Active Problems Problem Noted Date Diagnosed Date Chest pain 12/09/2021 Overview (12/09/2021): Added automatically from request for surgery [id number] Abnormal stress test 12/09/2021 Overview (12/09/2021): Added automatically from request for surgery [id number] Social History Tobacco Use Types Packs/Day Years Used Date Smoking Tobacco: Former Cigarettes Smokeless Tobacco: Never Tobacco Cessation:Counseling Given: Not Answered AUDIT-C Answer Date Recorded Q1: How often do you have a drink containing alcohol? 4 or more times a week 12/31/2021 Q2: How many drinks containi ng alcohol do you have on a typical day when you are drinking? 5 or 6 Q3: How often do you have si x or more drinks on one occasion? 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 Gender Identity Not on file Sexual Orientation Not on file Last Filed Vital Signs Vital Sign Reading Time Taken Comments Blood Pressure 162/88 05/15/2024 8:29 AM LIME FILTER OPERATOR Pulse 67 03/27/2024 8:47 AM CDT Temperature 37.7 C (99.9 F) 04/13/2022 3:25 PM CDT Respiratory Rate 18 04/13/2022 3:25 PM CDT Oxygen Saturation 99% 03/27/2024 8:47 AM CDT Inhaled Oxygen Concentration - - Weight 111.6 kg (246 lb) 03/27/2024 8:47 AM CDT Height 180.3 cm (5' 11 ) 03/27/2024 8:47 AM CDT Body Mass Index 34.31 03/27/2024 8:47 AM CDT Plan of Treatment Not on file Medical Devices Implanted Type Area Stone Grader Device Identifier Shelf Expiration Date Model / Serial / Lot [employer] Device 10ml 5fr Closure Mynx Control 2 Mode Balloon Catheter [id number] - [id number] Implanted:Qty: 1 on 12/31/2021 by Nirav Stanton MD at [facility] [employer] 12/08/2023 [id number] / / [id number] Insurance [employer] ADVANTAGE CHOICE PPO Care Teams Carbon Brushes Assembler Relationship Specialty Start Date End Date Olivia Good MD PCP - General Family Medicine 03/02/22
--- OUTSIDE RECORDS SUMMARY | 2024-09-18 00:22 | XMS_ITS | Clinical Summary ---
Author Organization [facility] [place] [address] Address [address] [place] [address] Care Team Providers Care Disability Insurance Hearing Officer Name Role Phone Olivia Good MD Primary [...] (12/09/2021): Added automatically from request for surgery [id number] Abnormal stress test 12/09/2021 Overview (12/09/2021): Added automatically from request for surgery [id number] Surgical History Surgery Date Site/Laterality Comments OTHER SURGICAL HISTORY vein surgery scrotum ROTATOR CUFF REPAIR Bilateral one side 1996 and other side 1995 CHOLECYSTECTOMY CARPAL TUNNEL RELEASE Left Medical History Medical History Date Comments Eczema Arthritis, lumbar spine Actinic keratoses Hypertension COPD (chronic obstructive pulmonary disease) (HC C) DE (myocardial infarction) (HCC) SOB (shortness of breath) on exertion Family History Medical History Relation Name Comments Coronary artery disease Father Theodore [place] Heart attack Father Theodore [place] Lung cancer Mother Tianna Lupus Mother Tianna Heart disease Other Breast cancer Sister Relation Name Status Comments Father Theodore [place] Mother Tianna Other Sister Social History Tobacco Use Types Packs/Day Years [...] on file Legal Sex Male 2:47 AM 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 Gender Identity Not on file Sexual Orientation Not on file Obstetrics History Last Filed Vital Signs Vital Sign Reading Time Taken Comments Blood Pressure 162/88 05/15/2024 8:29 AM WIRING TECHNICIAN Pulse 67 03/27/2024 8:47 AM CDT Temperature [...] 03/27/2024 8:47 AM CDT Plan of Treatment Health Maintenance Due Date Last Done Comments Colon Cancer Screening-Colonoscopy 1958 Depression Screening 1958 Hepatitis C Screening 1958 Prostate Cancer Screening-PSA 1958 Pneumococcal vaccine 65+ (1 of 2 - PCV) 1977 Zoster Vaccine (1 of 2) 2008 Fall Risk Assessment 12/31/2022 12/31/2021 Abdominal Aortic Aneurysm (A AA) Screen 2023 Well Visit 65+ 2023 Covid-19 Vaccine (2 - season) 03/10/202402/2021 Influenza Vaccine (#1) 2024 06/08/2021 DTaP/Tdap/Td Vaccine (2 - Td or Tdap) 11/01/2026 Hepatitis B Screening Completed 04/05/2016 , 10/23/2015, 09/25/2015 Medical Devices Implanted Type Area Automobile Assembly Supervisor Device Identifier Shelf Expiration Date Model / Serial / Lot [employer] Device 10ml 5fr Closure Mynx Control 2 Mode Balloon Catheter [id number] - [id number] Implanted:Qty: 1 on 12/31/2021 by Nirav Stanton MD at [facility] [employer] 12/08/2023 [id number] / / [id number] Insurance [employer] ADVANTAGE CHOICE PPO Care Teams Disability Insurance Hearing Officer Relationship Specialty Start Date End Date Olivia Good MD PCP - General Family Medicine 03/02/22
--- OUTSIDE RECORDS SUMMARY | 2024-09-18 00:23 | XMS_ITS | Continuity of Care Document ---
Author Organization [facility] Address [address] [facility] [address] [place] [id number] Phone Care Team Providers Care Managed Care Liaison Name Role Phone Emiliano PT, TICOT, Otf Unavailable Unavailable Procedures Procedure Date Progress Note Neuromuscular Re-Ed Therapeutic Exercise Therapeutic Activities Neuromuscular Re-Ed Therapeutic Exercise Therapeutic Activities Neuromuscular Re-Ed Therapeutic Exercise Therapeutic Activities Neuromuscular Re-Ed Therapeutic Exercise Therapeutic Activities Neuromuscular Re-Ed Therapeutic Exercise Therapeutic Activities Neuromuscular Re-Ed Therapeutic Exercise Therapeutic Activities Neuromuscular Re-Ed Therapeutic Exercise Progress Note Therapeutic Activities Neuromuscular Re-Ed Therapeutic Exercise Therapeutic Activities Neuromuscular Re-Ed Therapeutic Exercise Therapeutic Activities Neuromuscular Re-Ed Therapeutic Exercise Therapeutic Activities Neuromuscular Re-Ed Therapeutic Exercise Doc neg elder mal no plan PT Evaluation Moderate Complexity Therapeutic Activities Neuromuscular Re-Ed Therapeutic Exercise Advance Directives Directive Yes / No Effective Date File Name No Information Encounters Encounter Description Practice Location Reason(s) For Visit Diagnoses Date Provider Providers Copied on Encounter [facility] [address] [address], [place], [place], [id number], tel:[phone] [place] No Information 3 Emiliano Vanessa. . [facility] [address], [place], [place], [id number], tel:[phone] [place] No Information 3 Emiliano Vanessa. . Referring Provider: Abram Lockwood [id number], [place], [address]. tel:[phone] [facility] [address], [place], [place], [id number], tel:[phone] [place] No Information 3 Emiliano Vanessa. . Referring Provider: Abarm Lockwood [id number], [place], [address]. tel:[phone] [facility] [address] [address], [place], [place], [id number], tel:[phone] [place] No Information 3 Emiliano Vanessa. . Referring Provider: Abram Lockwood [id number], [place], [address]. tel:[phone] [facility] [address], [place], [place], [id number], [place] tel:[phone] [place] No Information 3 Emiliano Vanessa. . Referring Provider: Abram Lockwood [id number], [place], [address]. tel:[phone] [facility] [address], [place], [place], [id number], tel:[phone] [place] No Information Mar- 3 Emiliano Vanessa. . Referring Provider: Abram Lockwood [id number], [place], [address]. tel:[phone] [facility] [address], [place], [place], [id number], [place] tel:[phone] [place] No Information Sep-0 3 Emiliano Vanessa. . Referring Provider: Abram Lockwood [address], [place], [address]. tel:[phone] [facility], [place], [place], [id number], [place] tel:[phone] [place] No Information Sep-0 3 Mary Ahuja. . Referring Provider: Abram Lockwood [address], [place], [address]. tel:[phone] [facility] [address], [place], [place], [id number], [place] tel:[phone] [place] No Information Sep-0 3 Emiliano Vanessa. . Referring Provider: Abram Lockwood [address], [place], [address]. tel:[phone] [facility] [address], [place], [place], [id number], [place] tel:[phone] [place] No Information Aug-2 3 Emiliano Vanessa. . Referring Provider: Abram Lockwood [address], [place], [address]. tel:[phone] [facility], [place], [place], [id number], [place] tel:[phone] [place] No Information Feb-2 3 Emiliano Vanessa. . Referring Provider: Abram Lockwood [address], [place], [address]. tel:[phone] [facility], [place], [place], [id number], [place] tel:[phone] [place] No Information Aug-2 3 Emiliano Vanessa. . Referring Provider: Abram Lockwood [address], [place], [address]. tel:[phone] [facility], [address] [facility] [address], [place], [place], [id number], tel:[phone] [place] No Information 3 Emiliano Vanessa. . Referring Provider: Abram Lockwood [id number], [place], [address]. tel:[phone] Family History Family Member Type Diagnosis Age At Onset No Information Payers Payer name Insurance type Covered green party ID Authoriza tibill(s) [employer] [facility] [id number] Social History Type Description Quantity Date Captured Comments Sex Male Smoking Status No Information Chief Complaint And Reason For Visit No Information Reason For Referral Reason For Referral No Information History Of Present Illness Encounter Date Complaint History Of Prese nt Illness No Information Functional Status Date Functional Assessmen t No Information Instructions Date Instruction Additional Infor jose e Giving encouragement to exercise Related to Overweight Giving encouragement to exercise Related to Overweight Assessments Type Assessment Date No Information Patient Care Teams Name Effective Dates (start - stop) Status Members No Information
--- NOTE | 2024-09-18 06:48 | PM.HPGS ---
History of Present Illness History of Present Illness Chief complaint: right carpal & cubital tunnel syndrome Narrative: Patient seen and examined in pre-operative holding area. No interval change in medical history or symptoms. Patient recalls previous discussion of benefits and alternatives to procedure. Continues to desire to proceed with right endoscopic possible open carpal tunnel release and right cubital tunnel release. Reviewed procedure, post-op expectations and risks including but not limited to bleeding, infection, injury to tendon/nerve/vessel, decreased hand function, stiffness, RSD, no change or worsening of symptoms. I discussed the possible use of assistants and their participation in the case. Patient stated understanding and signed the consent form wishing to proceed. Review of Systems Review of Systems: All systems reviewed & are unremarkable except as noted in HPI and below PMFSH Past Medical History Medical History Arthritis of left wrist primarily STT Shortness of breath on exertion Arthritis, lumbar spine Left leg pain Osteopenia Infrapatellar bursitis of left knee Strain of left soleus muscle Allergic rhinitis Abscess Neoplasm of uncertain behavior of skin Actinic keratoses Eczematous dermatitis Surgical History Surgical History History of cholecystectomy H/O repair of rotator cuff Family History Family History Father Family history of elevated blood lipids Family history of coronary artery disease Family history of heart disease in male family member before age 55 Acute myocardial infarction Sibling Family history of malignant neoplasm of breast in first degree relative Family history of gallbladder disease Mother Family history of lung cancer Other Family history of cardiovascular disease Hypertension Social History Social History Social History: Caffeine-daily Smoking packs per day: 1.5 Smoking cigarettes per day: 30.0 Years smoked: 47 Smoking pack-years: 70.50 Smoking status: Former smoker Tobacco type: cigarettes Smoking end date: 12/31/21 Alcohol intake: current Drinks per week: 10 Substance use: never Substance use type: does not use Do You Feel Safe in your Home?: Yes Lack of Transportation: No Lack of Food: Never True Current Housing: I Have Housing Concerned About Future Housing: No Difficulty Paying Gas/Electric Bills: No Difficulty Paying for Meds: No Currently Unemployed: No Education: Trade/Vocational Certificate Difficulty w/ Childcare or Family Care: No Living arrangements: alone Occupation/Education: occupation Additional occupation/education comments: [employer] Gender identity (if verbalized by the patient): Male Spiritual care concerns: No Agree to blood products: Yes Meds Home Medications and Allergies Home Medications ?Medication ?Instructions ?Recorded ?Confirmed ?Type aspirin 81 mg tablet,delayed 81 mg PO DAILY 01/30/20 08/30/24 History release fluticasone fur. 200 mcg-umeclid See Rx Instructions .Route 04/23/24 08/30/24 Rx 62.5 mcg-vilant 25 mcg .COMPLEX #60 ea inhalat.powder (Trelegy Ellipta) atorvastatin 80 mg tablet 80 mg PO DAILY 06/03/24 08/30/24 History empagliflozin 10 mg tablet 10 mg PO DAILY 06/03/24 08/30/24 History (Jardiance) furosemide 20 mg tablet 20 mg PO DAILY 06/03/24 08/30/24 History losartan 100 mg tablet 100 mg PO DAILY 06/03/24 08/30/24 History fluticasone propionate 50 2 spray intranasal DAILY #16 grams 07/29/24 08/30/24 Rx mcg/actuation nasal spray,suspension (Allergy Relief (fluticasone)) Allergies Allergy/AdvReac Type Severity Reaction Status Date / Time suture Allergy Intermediate infection Verified 08/30/24 12:04 Penicillins Allergy Unknown Rash Verified 08/30/24 12:04 lisinopril AdvReac Intermediate cough,swell Verified 08/30/24 12:04 ing hydrochlorothiazide AdvReac Mild hyponatremi Verified 08/30/24 12:23 a
--- NOTE | 2024-09-18 06:49 | W.PM.PROC2 ---
Procedure Note - Detailed Date of Procedure 09/18/24 Pre-op Diagnosis right carpal & cubital tunnel syndrome Post-op Diagnosis Same Procedure Performed right ectr and CuTR Surgeon Greg Lockhart MD Solar Installer Technician jason marina pa-c Anesthesia MAC Description of Procedure INFORMED CONSENT: The patient was seen and examined and marked in the pre-op area.? The patient signed the consent form. PROCEDURE IN DETAIL:The patient taken back to OR on the stretcher in supine position. Time out performed with anesthesia, surgeon and staff agreeing on patient's name site and surgery to be performed SCDs were placed on the lower extremities and inflated. A tourniquet was placed on {right} upper extremity and antibiotics given IV After anesthesia administered sedation I injected {10}cc 1%lido with epi and 0.5% marcaine plain at the operative sites The?{right upper extremity}?was prepped and draped in sterile fashion the??{right upper extremity} was? exsanguinated with Esmarch bandage and tourniquet inflated to 250mmHg I made a transverse incision in the {right} volar distal wrist crease through skin and dermis with 15 blade scalpel.? Littler scissors spread down to antebrachial fascia. A small incision was made in antebrachial fascia allowing access to Carpal tunnel. I proceeded with sequential dilation staying in line with the ring finger and hugging the hook of the hamate.? I then used the synovial elevator to free any adhesions from the underside of the transverse carpal ligament. Next I was able to insert the Microaire endoscopic carpal tunnel device with direct visualization of the transverse fibers on the monitor and proceeded with complete segmental retrograde release of the ligament in its entirety.? I irrigated with normal saline and closed with 4-0 monocryl for dermis and subcuticular closure. I next proceeded with making a longitudinal incision between two heads for flexor carpi ulnaris at end of {right} cubital tunnel with 15 blade scalpel.? Littler scissors were used to spread down to FCU fascia.? An incision was made in FCU fascia and ulnar nerve identified exiting cubital tunnel.? I proceeded with complete retrograde release of the cubital tunnel including 7cm proximal for the intermuscular septum.? The nerve appeared healthy with visible vaso nervorum.? There was no subluxation on full elbow range of motion. ? I irrigated with normal saline and closure with 4-0 monocryl for dermis and subcuticular. The incisions were covered with Dermabond then 4x4s, moises, and a posterior elbow and volar wrist splint for patient safety, security and comfort and secured with zack bandages after the tourniquet was let down noting the hand was warm and well perfused.? Patient awaken from anesthesia and transferred to recovery in stable condition Complications - none EBL- 1cc Disposition - home in stable conditions jason marina pa-c was essential for positioning, retraction, closure and dressing mady MATA Billing Surgery - Charge Forward: Surgery Billing ([id number] for jason)
[2024-09-18 08:42] VITALS: BP 138/80; PULSE 68; RESP 14; TEMP 37; O2SAT 98; BMI 34.8
--- NOTE | 2024-09-18 08:42 | WPDANESEPP ---
Anes - Eval Pre Procedure Procedure: Operation Date: 09/18/24 10:30 Proposed Procedures p Right Endoscopic Carpal Tunnel Release, Possible Open, Right Cubital Tunnel Release - Greg Lockhart MD Date/Time: 09/18/24 08:42 Surgeon: Richy Pre Op Diagnosis: right carpal & cubital tunnel syndrome Patient Data Age: 64 Gender: M Height: 1.79 m Weight: 108.9 kg Allergies Allergy/AdvReac Type Severity Reaction Status Date / Time suture Allergy Intermediate infection Verified 09/18/24 08:40 Penicillins Allergy Unknown Rash Verified 09/18/24 08:40 lisinopril AdvReac Intermediate cough,swell Verified 09/18/24 08:40 ing hydrochlorothiazide AdvReac Mild hyponatremi Verified 09/18/24 08:40 a Home Medications ?Medication ?Instructions ?Recorded ?Confirmed ?Type aspirin 81 mg tablet,delayed 81 mg PO DAILY 01/30/20 09/18/24 History release fluticasone fur. 200 mcg-umeclid See Rx Instructions .Route 04/23/24 09/18/24 Rx 62.5 mcg-vilant 25 mcg .COMPLEX #60 ea inhalat.powder (Trelegy Ellipta) atorvastatin 80 mg tablet 80 mg PO DAILY 06/03/24 09/18/24 History empagliflozin 10 mg tablet 10 mg PO DAILY 06/03/24 09/18/24 History (Jardiance) furosemide 20 mg tablet 20 mg PO DAILY 06/03/24 09/18/24 History losartan 100 mg tablet 100 mg PO DAILY 06/03/24 09/18/24 History fluticasone propionate 50 2 spray intranasal DAILY #16 grams 07/29/24 09/18/24 Rx mcg/actuation nasal spray,suspension (Allergy Relief (fluticasone)) Other studies: 2021 stress echo & cath negative. EF 60-65%. followed by Dr. Stanton & Dr. Reina Good Patient hx anesthesia problems: none Family hx anesthesia problems: none Results Review: All pre-operative results and documents have been reviewed as part of the pre-operative evaluation. [facility] Past Medical History Medical History History of tobacco abuse 70 pk/yr history. quit 2021 COPD (chronic obstructive pulmonary disease) Arthritis of left wrist primarily STT Shortness of breath on exertion Arthritis, lumbar spine Left leg pain Osteopenia Infrapatellar bursitis of left knee Strain of left soleus muscle Allergic rhinitis Abscess Neoplasm of uncertain behavior of skin Actinic keratoses Eczematous dermatitis Surgical History Surgical History History of cholecystectomy H/O repair of rotator cuff Family History Family History Father Family history of elevated blood lipids Family history of coronary artery disease Family history of heart disease in male family member before age 55 Acute myocardial infarction Sibling Family history of malignant neoplasm of breast in first degree relative Family history of gallbladder disease Mother Family history of lung cancer Other Family history of cardiovascular disease Hypertension Social History Social History Social History: Caffeine-daily Smoking packs per day: 1.5 Smoking cigarettes per day: 30.0 Years smoked: 47 Smoking pack-years: 70.50 Smoking status: Former smoker Tobacco type: cigarettes Smoking end date: 12/31/21 Alcohol intake: current Drinks per week: 10 Substance use: never Substance use type: does not use Do You Feel Safe in your Home?: Yes Lack of Transportation: No Lack of Food: Never True Current Housing: I Have Housing Concerned About Future Housing: No Difficulty Paying Gas/Electric Bills: No Difficulty Paying for Meds: No Currently Unemployed: No Education: Trade/Vocational Certificate Difficulty w/ Childcare or Family Care: No Living arrangements: alone Occupation/Education: occupation Additional occupation/education comments: [employer] Gender identity (if verbalized by the patient): Male Spiritual care concerns: No Agree to blood products: Yes Exam Day of Procedure 09/18/24 08:42
[2024-09-18] MEDS: LACTATED RINGERS 1,000 ML 30 ML IV CONT (08:50)
[2024-09-18] MEDS: LIDO 1%/EPINEPHRINE 1:100,000 20 ML VIAL 10 ML INFILTRATE (08:53)
--- NOTE | 2024-09-18 09:03 | WPDANESEPPF ---
Anes - Initial Pre Proc Eval Procedure: Operation Date: 09/18/24 10:30 Proposed Procedures p Right Endoscopic Carpal Tunnel Release, Possible Open, Right Cubital Tunnel Release - Greg Lockhart MD Date/Time: 09/18/24 09:03 Surgeon: Greg Lockhart MD Pre Op Diagnosis: right carpal & cubital tunnel syndrome Patient Data Age: 64 Gender: M Height: 1.79 m Weight: 111.7 kg Last Vital Signs Temp 37.0 C 09/18/24 08:42 Pulse 68 09/18/24 08:42 Resp 14 09/18/24 08:42 BP 138/80 09/18/24 08:42 Pulse Ox 98 09/18/24 08:42 Allergies Allergy/AdvReac Type Severity Reaction Status Date / Time suture Allergy Intermediate infection Verified 09/18/24 08:40 Penicillins Allergy Unknown Rash Verified 09/18/24 08:40 lisinopril AdvReac Intermediate cough,swell Verified 09/18/24 08:40 ing hydrochlorothiazide AdvReac Mild hyponatremi Verified 09/18/24 08:40 a Home Medications ?Medication ?Instructions ?Recorded ?Confirmed ?Type aspirin 81 mg tablet,delayed 81 mg PO DAILY 01/30/20 09/18/24 History release fluticasone fur. 200 mcg-umeclid See Rx Instructions .Route 04/23/24 09/18/24 Rx 62.5 mcg-vilant 25 mcg .COMPLEX #60 ea inhalat.powder (Trelegy Ellipta) atorvastatin 80 mg tablet 80 mg PO DAILY 06/03/24 09/18/24 History empagliflozin 10 mg tablet 10 mg PO DAILY 06/03/24 09/18/24 History (Jardiance) furosemide 20 mg tablet 20 mg PO DAILY 06/03/24 09/18/24 History losartan 100 mg tablet 100 mg PO DAILY 06/03/24 09/18/24 History fluticasone propionate 50 2 spray intranasal DAILY #16 grams 07/29/24 09/18/24 Rx mcg/actuation nasal spray,suspension (Allergy Relief (fluticasone)) Patient hx anesthesia problems: none Family hx anesthesia problems: none Results Review: All pre-operative results and documents have been reviewed as part of the pre-operative evaluation. [facility] Past Medical History Medical History History of tobacco abuse 70 pk/yr history. quit 2021 COPD (chronic obstructive pulmonary disease) Arthritis of left wrist primarily STT Shortness of breath on exertion Arthritis, lumbar spine Left leg pain Osteopenia Infrapatellar bursitis of left knee Strain of left soleus muscle Allergic rhinitis Abscess Neoplasm of uncertain behavior of skin Actinic keratoses Eczematous dermatitis Surgical History Surgical History History of cholecystectomy H/O repair of rotator cuff Family History Family History Father Family history of elevated blood lipids Family history of coronary artery disease Family history of heart disease in male family member before age 55 Acute myocardial infarction Sibling Family history of malignant neoplasm of breast in first degree relative Family history of gallbladder disease Mother Family history of lung cancer Other Family history of cardiovascular disease Hypertension Social History Social History Social History: Caffeine-daily Smoking packs per day: 1.5 Smoking cigarettes per day: 30.0 Years smoked: 47 Smoking pack-years: 70.50 Smoking status: Former smoker Tobacco type: cigarettes Smoking end date: 12/31/21 Alcohol intake: current Drinks per week: 10 Substance use: never Substance use type: does not use Do You Feel Safe in your Home?: Yes Lack of Transportation: No Lack of Food: Never True Current Housing: I Have Housing Concerned About Future Housing: No Difficulty Paying Gas/Electric Bills: No Difficulty Paying for Meds: No Currently Unemployed: No Education: Trade/Vocational Certificate Difficulty w/ Childcare or Family Care: No Living arrangements: alone Occupation/Education: occupation Additional occupation/education comments: [employer] Gender identity (if verbalized by the patient): Male Spiritual care concerns: No Agree to blood products: Yes Anes - Eval Final PreProcedure Day of Procedure 09/18/24 09:03 Patient weight: obese Heart: regular rate and rhythm Lungs: clear to auscultation Airway: Mallampati scale class II Neurological: alert and oriented Last oral intake: >/= 8 hours ASA classification: III Emergent: no Anesthetic plan: proceed Anesthesia type and monitoring: general GIVS and standard monitoring Results Review: All pre-operative results and documents have been reviewed as part of the pre-operative evaluation. Informed Consent: The patient's anesthetic plan and its attendant risks and benefits were discussed with the patient/family/POA. Questions were solicited and answers provided to the satisfaction of the patient/family/POA.
[2024-09-18] MEDS: ceFAZolin 2 GM/D5W 50 ML 2 GM/50 ML BAG IVPB (09:59)
[2024-09-18 10:38] VITALS: BP 119/69; PULSE 70; RESP 12; O2SAT 95
[2024-09-18 11:00] VITALS: BP 124/72; PULSE 59
[2024-09-18 11:30] VITALS: BP 132/73; PULSE 59
== END 2024-09-18 11:40 | disposition home or self-care (01) ==
PROVIDERS: PCP Family Medicine; Visit Provider Plastic Surgery
PROC: 01N54ZZ Release Median Nerve, Percutaneous Endoscopic Approach (ICD-10-PCS; CPT 29848; principal; 2024-09-18 10:30)
DX: G56.01 Carpal tunnel syndrome, right upper limb (principal); G56.21 Lesion of ulnar nerve, right upper limb; M19.032 Primary osteoarthritis, left wrist; J44.9 Chronic obstructive pulmonary disease, unspecified; M85.88 Other specified disorders of bone density and structure, other site; M47.896 Other spondylosis, lumbar region; L57.0 Actinic keratosis; L30.9 Dermatitis, unspecified; E66.9 Obesity, unspecified; Z68.34 Body mass index [BMI] 34.0-34.9, adult; Z79.82 Long term (current) use of aspirin; Z79.51 Long term (current) use of inhaled steroids; Z79.84 Long term (current) use of oral hypoglycemic drugs; Z98.890 Other specified postprocedural states; Z90.49 Acquired absence of other specified parts of digestive tract; Z87.891 Personal history of nicotine dependence; Z80.3 Family history of malignant neoplasm of breast; Z80.1 Family history of malignant neoplasm of trachea, bronchus and lung; Z82.49 Family history of ischemic heart disease and other diseases of the circulatory system
CPT/HCPCS: 64718; 29848; J0690; J2003; J2004; J2250; J2704; J3010; J7120

== ENCOUNTER 2025-03-24 10:14 | Outpatient (CLI) | payer OTHER, SELFPAY ==
[2025-03-24 11:09] LABS: Anion Gap 7 mmol/L (4-12); Blood Urea Nitrogen 20 mg/dL (9-20); Calcium 8.9 mg/dL (8.4-10.2); Carbon Dioxide 25 mmol/L (22-30); Chloride 105 mmol/L (98-107); Estimated Glomerular Filt Rate > 60; Glucose 106 mg/dL (65-110); Potassium 3.9 mmol/L (3.4-5.0); Sodium 137 mmol/L (137-145)
--- OUTSIDE RECORDS SUMMARY | 2025-03-24 11:57 | XMS_ITS | Clinical Summary ---
Author Organization [facility] Address [address] [place] [id number] Care Team Providers Care Maintenance Dispatcher Name Role Phone Leonard Good MD Primary Care Provider [phone] Social History Tobacco Use Types Packs/Day Years Used Date Smoking Tobacco: Never Assessed Sex and Gender Information Value Date Recorded Sex Assigned at Not on file Legal Sex Male 10:18 AM CDT Gender Identity Not on file Sexual Orientation Not on file Plan of Treatment Health Maintenance Due Date Last Done Comments Colorectal Cancer Screening Colonoscopy (10 Years) 1958 Hepatitis C 1976 Zoster Vaccines (1 of 2) 2008 Annual Medicare Wellness Visit 2023 PHQ-2 (Physician [place]) 07/10/2024 COVID-19 Vaccine (3 - 2024-2 6 season) 2025 06/20/2023, 09/14/2020 DTaP, Tdap and Td Vaccines ( 2 - Td or Tdap) 11/01/2026 11/01/2016 RSV Immunization or 60+ Years (1 - 1-dose 75+ series) 2033 Pneumococcal Vaccine: 50+ Years Completed 06/20/2023, 05/10/2022 Meningococcal B Vaccine Aged Out No l onger eligible based on patient's age to complete this topic Meningococcal Vaccine Aged Out No ghazal jhonathan eligible based on patient's age to complete this topic RSV Immunizations Under 20 Months Aged Out No longer eligible b ased on patient's age to complete this topic Insurance E[employer] Care Teams Maintenance Dispatcher Relationship Specialty Start Date End Date Leonard Good MD [id number] [place] [address] PCP - General FAMILY PRACTICE 05/16/24
--- OUTSIDE RECORDS SUMMARY | 2025-03-24 11:57 | XMS_ITS | Clinical Summary ---
Author Organization [facility] [address] Address [address] [place] [address] Care Team Providers Care Waste Management Recycling Technician Name Role Phone Olivia Good MD Primary Care Provider + Allergies Active Allergy Reactions Criticality Noted Date Comments Penicillins Rash Medium 12/01/2021 PCN allergy form filled out Medications aspirin 81 mg chewable tablet Take 1 tablet (81 mg total) by mouth daily Active Trelegy Ellipta 200-62.5-25 mcg inhaler INHALE 1 PUFF BY MOUTH EVERY 24 HOURS. RINSE MOUTH AFTER USE 11/11/2021 Active losartan (COZAAR) 100 mg tablet Take 1 tablet (100 mg total) by mouth nightly 90 tablet 6 03/27/2024 Active furosemide (LASIX) 20 mg tablet Take 1 tablet (20 mg total) by mouth daily 30 tablet 11 05/24/2024 Active empagliflozin (JARDIANCE) 10 mg tablet Take 1 tablet (10 mg total) by mouth daily 30 tablet 11 05/24/2024 Active atorvastatin (LIPITOR) 80 mg tablet Take 1 tablet by mouth nightly 90 tablet 11/18/2024 Active Active Problems Problem Noted Date Diagnosed Date Chest pain 12/09/2021 Overview (12/09/2021): Added automatically from request for surgery [id number] Abnormal stress test 12/09/2021 Overview (12/09/2021): Added automatically from request for surgery [id number] Surgical History Surgery Date Site/Laterality Comments OTHER SURGICAL HISTORY vein surgery scrotum ROTATOR CUFF REPAIR Bilateral one side 1996 and other side 1995 CHOLECYSTECTOMY CARPAL TUNNEL RELEASE Left Medical History Medical History Date Comments Eczema Arthritis, lumbar spine Actinic keratoses Hypertension COPD (chronic obstructive pulmonary disease) [place] (myocardial infarction) (HCC) SOB (shortness of breath) [...] on file Legal Sex Male 2:47 AM UPFITTER Gender Identity Not on file Sexual Orientation Not on file Obstetrics History Last Filed Vital Signs Vital Sign Reading Time Taken Comments Blood Pressure 162/88 05/15/2024 8:29 AM UPFITTER Pulse 67 03/27/2024 8:47 AM CDT Temperature 37.7 C (99.9 F) 04/13/2022 3:25 PM CDT Respiratory Rate 18 04/13/2022 3:25 PM CDT Oxygen Saturation 99% 03/27/2024 8:47 AM CDT Inhaled Oxygen Concentration - - Weight 111.6 kg (246 lb) 03/27/2024 8:47 AM CDT Height 180.3 cm (5' 11) 03/27/2024 8:47 AM CDT Body Mass Index [...] 65+ 2023 Covid-19 Vaccine (2 - season) 03/10/202502/2021 Influenza Vaccine (#1) 2025 06/08/2021 DTaP/Tdap/Td Vaccine (2 - Td or Tdap) 11/01/2026 Hepatitis B Screening Completed 04/05/2016 , 10/23/2015, 09/25/2015 Medical Devices Implanted Type Area Kindergarten Assistant Device Identifier Shelf Expiration Date Model / Serial / Lot [employer] Device 10ml 5fr Closure Mynx Control 2 Mode Balloon Catheter [id number] - [id number] Implanted:Qty: 1 on 12/31/2021 by Nirav Stanton MD at [facility] [employer] 12/08/2023 [id number] / / [id number] Insurance [employer] ADVANTAGE CHOICE PPO Care Teams Waste Management Recycling Technician Relationship Specialty Start Date End Date Olivia Good MD PCP - General Family Medicine 03/02/22
== END 2025-03-24 10:15 | disposition home or self-care (01) ==
LOC: ANHSURGERY 10:28
PROVIDERS: Anesthesiology; PCP Family Medicine; Visit Provider Plastic Surgery
DX: Z51.81 Encounter for therapeutic drug level monitoring (principal); Z79.899 Other long term (current) drug therapy
CPT/HCPCS: 36415; 80048

== ENCOUNTER 2025-03-25 07:44 | Outpatient (CLI) | payer OTHER, SELFPAY ==
--- NOTE | ~2025-03-25 | MR_ITS ---
EXAMINATION: MR knee RT wo con DATE: 03/25/2025 08:14 INDICATION: Pain in right knee. TECHNIQUE: Magnetic resonance imaging (MRI) of the right knee was performed without intravenous contrast. Sequences included axial PD-weighted FS FSE, coronal PD-weighted FSE and PD-weighted FS FSE, sagittal PD-weighted FSE, and sagittal T2-weighted FS FSE. COMPARISON: Right knee radiographs 02/27/2025 FINDINGS: Medial compartment: There is a complex tear of body and posterior horn of medial meniscus. There is cartilage surface irregularity of tibial condyle and femoral condyle. There are tiny osteophytes. Lateral compartment: Lateral meniscus is normal. The lateral compartment cartilage is normal. There are tiny osteophytes. Patellofemoral compartment: There is shallow partial-thickness cartilage loss of patellar medial and lateral facets and median ridge. There is deep partial-thickness cartilage loss of patellar odd facet with mild subchondral edema-like marrow signal intensity. There is deep partial-thickness cartilage loss of medial trochlea and shallow partial-thickness cartilage loss of lateral trochlea. Ligaments and tendons: The anterior and posterior cruciate ligaments are normal. There are changes of prior sprains of medial collateral ligament and lateral collateral ligament characterized by thickening and increased signal intensity proximally. There is mild patellar tendinopathy. Fluid: There is a small knee joint effusion. There is moderate prepatellar and superficial infrapatellar bursitis. There is trace fluid in a Kingsley's cyst. There is semimembranosus-tibial collateral ligament bursitis and pes anserinus bursitis with multiloculated fluid measuring 7.4 x 1.8 x 1.6 cm. IMPRESSION: 1. Moderate chondrosis of patellofemoral compartment and mild chondrosis of medial compartment. 2. Complex tear of medial meniscus. 3. Posteromedial knee bursitis. 4. Small knee joint effusion. Reviewed, dictated and finalized at location E. IMPRESSION: 1. Moderate chondrosis of patellofemoral compartment and mild chondrosis of med ial compartment. 2. Complex tear of medial meniscus. 3. Posteromedial knee bursitis. 4. Small knee joint effusion.
== END 2025-03-25 07:45 | disposition home or self-care (01) ==
LOC: MICIMG 07:46
PROVIDERS: PCP Family Medicine; Visit Provider Orthopaedic Surgery
DX: M25.461 Effusion, right knee (principal); S83.231D Complex tear of medial meniscus, current injury, right knee, subsequent encounter; X58.XXXD Exposure to other specified factors, subsequent encounter; M70.51 Other bursitis of knee, right knee
CPT/HCPCS: 73721

== ENCOUNTER 2025-03-30 12:51 | Emergency (ER) | payer OTHER, SELFPAY ==
--- NOTE | 2025-03-30 12:56 | ED.WOUNDLAC ---
HPI - Wound/Laceration General Chief Complaint: Wound/Laceration Stated Complaint: PUNCTURE WOUND L INDEX FINGER Time Seen by Provider: 03/30/25 13:08 Source: patient and RN notes reviewed Mode of arrival: ambulatory Limitations: no limitations History of Present Illness HPI narrative: 64-year-old male presents with for digit was left hand. He reports prior to arrival he punctured the finger with a automatic screwdriver. He denies any decreased sensation, strength, range of motion of the digit. He is having surgery on that arm for an unrelated issue later this week. He is not up-to-date on the site next vaccination Related Data Home Medications ?Medication ?Instructions ?Recorded ?Confirmed ?Last Taken ?Type aspirin 81 mg tablet,delayed 81 mg PO DAILY 01/30/20 03/30/25 09/11/24 History release Held on 03/30/25. Instructions: scheduled surgery atorvastatin 80 mg tablet 80 mg PO DAILY 06/03/24 03/30/25 09/17/24 History empagliflozin 10 mg tablet 10 mg PO DAILY 06/03/24 03/30/25 09/17/24 History (Jardiance) furosemide 20 mg tablet 20 mg PO DAILY 06/03/24 03/30/25 09/17/24 History losartan 100 mg tablet 100 mg PO DAILY 06/03/24 03/30/25 09/17/24 History albuterol 90 mcg/actuation aerosol 90 mcg inhalation Q4-6H PRN 03/24/25 03/30/25 Unknown History inhaler shortness of breath or wheezing Allergies Allergy/AdvReac Type Severity Reaction Status Date / Time suture Allergy Intermediate infection/ Verified 03/30/25 12:58 DRNG Penicillins Allergy Unknown Rash Verified 03/30/25 12:58 lisinopril AdvReac Intermediate cough,swell Verified 03/30/25 12:58 ing hydrochlorothiazide AdvReac Mild hyponatremi Verified 03/30/25 12:58 a Review of Systems Review of Systems: CONSTITUTIONAL: Denies malaise, chills, sweats, or fever. SKIN: Reports puncture wound to the 2nd digit of the left hand MUSCULOSKELETAL: Denies muscle skeletal pain NEUROLOGIC: Denies numbness, weakness All systems reviewed & are unremarkable except as noted in HPI and below PMFSH Past Medical History Medical History History of tobacco abuse 70 pk/yr history. quit 2021 COPD (chronic obstructive pulmonary disease) Arthritis of left wrist primarily STT Shortness of breath on exertion Arthritis, lumbar spine Left leg pain Osteopenia Infrapatellar bursitis of left knee Strain of left soleus muscle Allergic rhinitis Abscess Neoplasm of uncertain behavior of skin Actinic keratoses Eczematous dermatitis Surgical History Surgical History History of cholecystectomy H/O repair of rotator cuff Family History Family History Father Family history of elevated blood lipids Family history of coronary artery disease Family history of heart disease in male family member before age 55 Acute myocardial infarction Sibling Family history of malignant neoplasm of breast in first degree relative Family history of gallbladder disease Mother Family history of lung cancer Other Family history of cardiovascular disease Hypertension Social History Social History (Updated 02/28/25 @ 07:59 by Geri Miranda MA) Social History: Caffeine-daily Smoking packs per day: 1.25 Smoking cigarettes per day: 25.0 Years smoked: 49 Smoking pack-years: 61.25 Smoking status: Former smoker Tobacco type: cigarettes Smoking end date: 01/07/22 Alcohol intake: current Drinks per week: 20 Alcohol use details: BEER Substance use: never Substance use type: does not use Do You Feel Safe in your Home?: Yes Current Housing: Decline to Answer Concerned About Future Housing: Decline to Answer Difficulty Paying Gas/Electric Bills: Decline to Answer Difficulty Paying for Meds: Decline to Answer Currently Unemployed: Decline to Answer Education: Decline to Answer Difficulty w/ Childcare or Family Care: Decline to Answer Living arrangements: with family Additional living arrangements comments: , DAUGHTER, 3 GRANDCHILDREN Occupation/Education: occupation Additional occupation/education comments: [employer] Gender identity (if verbalized by the patient): Male Spiritual care concerns: No Agree to blood products: Yes Comments At time of signature, agree with nursing past medical, surgical, social and family history. There is no relevant family history pertinent to the presenting complaint Exam Narrative: GENERAL: Well-appearing, well-nourished, and in no acute distress. HEAD: Normocephalic EYES: PERRLA, conjunctivae clear NECK: Supple. CHEST: Speaks in full sentences. No respiratory distress. HEART: Regular rate and rhythm. Normal and equal peripheral pulses. EXTREMITIES: 2nd digit of left hand have normal strength and sensation. 5/5 strength with digit flexion, extension. Range of motion normal. No clubbing, cyanosis, or edema noted. No tenderness. Normal digital cascade with flexion of fingers, median, ulnar and radial nerve intact. Normal sensation of each side of finger. Good capillary refill and radial pulse. Distal capillary refill less than 3 seconds. SKIN: Warn, dry, intact, pink. No rash NEURO: Alert and oriented x3. PSYCH: Normal mood and affect Course Course Emergency Course: Patient is aware of diagnosis, understands and agrees to treatment plan. Anticipatory guidance given. Patient agrees to follow-up as directed and is aware of reasons to seek care at the emergency department. Portions of this record may have been created with voice recognition software Level of Care: Express Care Visit Vital Signs Vital signs: Reviewed. MDM - Wound/Laceration MDM Narrative Medical decision making narrative: Wound explored for foreign body and copious irrigation provided with no evidence of FB. Discussed the potential of retained foreign body with the patient and signs/symptoms that should prompt the patient to immediately go to the ED for reevaluation. Small amount of thin the skin it debrided from the puncture wound. Tetanus prophylaxis was given Differential Diagnosis Differential diagnosis: Likely laceration, abrasion and avulsion of skin Critical Care Time Critical Care Time Critical Care Time: No Discharge Plan Discharge Clinical Impression: Puncture wound Patient Disposition: Home Condition: Stable Instructions: Antibiotic Form, Puncture Wound (ED) Additional Instructions: Take antibiotic as directed. You can soak your wound in the warm water with Epsom salts or apple cider vinegar several times daily. Keep wound clean, and dry. Apply antibiotic ointment twice daily. Cover with bandage as needed to prevent contamination. Clean with soap and water twice daily, but do not soak, take baths, or swim until wound is completely healed. Do not clean with hydrogen peroxide. If any signs of infection such as redness, swelling, increasing pain, drainage of purulent discharge, streaks up your extremity develop, seek medical attention immediately. Patient Language: Surinamese Prescriptions: New cephalexin 500 mg capsule 500 mg PO QID 10 Days Qty: 40 0RF No Action fluticasone propionate [Allergy Relief (fluticasone)] 50 mcg/actuation spray,suspension 2 spray intranasal DAILY Qty: 16 4RF Patient Comments: QAM Rx Instructions: administer into each nostril aspirin 81 mg tablet,delayed release (DR/EC) 81 mg PO DAILY Jardiance 10 mg tablet 10 mg PO DAILY Patient Comments: QAM furosemide 20 mg tablet 20 mg PO DAILY Patient Comments: QAM atorvastatin 80 mg tablet 80 mg PO DAILY losartan 100 mg tablet 100 mg PO DAILY Patient Comments: QAM albuterol 90 mcg/actuation aerosol 90 mcg inhalation Q4-6H PRN (Reason: shortness of breath or wheezing) Trelegy Ellipta 200-62.5-25 mcg blister with device See Rx Instructions .ROUTE .COMPLEX Qty: 60 5RF Dose Instruction: INHALE 1 PUFF BY MOUTH EVERY 24 HOURS. RINSE MOUTH AFTER USE Rx Instructions: INHALE 1 PUFF BY MOUTH EVERY 24 HOURS. RINSE MOUTH AFTER USE Follow-up/Referrals: Olivia Good MD [Primary Care Provider, Family Practice] Time of Disposition: 13:16
[2025-03-30 13:01] VITALS: BP 129/85; PULSE 75; RESP 16; TEMP 36.3; O2SAT 96
[2025-03-30] MEDS: TETANUS,DIPHTHERIA,AC PERTUSSIS ADULT (0.5 ML) BOOSTRIX IM (13:16)
== END 2025-03-30 13:33 | disposition home or self-care (01) ==
PROVIDERS: Emergency Provider Nurse Practitioner; PCP Family Medicine
DX: S61.231A Puncture wound without foreign body of left index finger without damage to nail, initial encounter (principal); W29.8XXA Contact with other powered hand tools and household machinery, initial encounter; Z23 Encounter for immunization; J44.9 Chronic obstructive pulmonary disease, unspecified; M19.032 Primary osteoarthritis, left wrist; M47.816 Spondylosis without myelopathy or radiculopathy, lumbar region; M85.80 Other specified disorders of bone density and structure, unspecified site; Z85.828 Personal history of other malignant neoplasm of skin; Z79.82 Long term (current) use of aspirin
CPT/HCPCS: 90471; 90715; 99213; G0463

== ENCOUNTER 2025-04-02 00:19 | Day surgery (SDC) | payer OTHER, SELFPAY ==
[2025-03-24 09:29] VITALS: BMI 34.4
--- NOTE | 2025-03-24 09:52 | PC.NURSE ---
Report to the Outpatient Waiting Room, entrance under the green pavilion located off [facility], at time __6:00AM___ on date __04/02/25___. Planned Procedure Time: ___7:30AM___.? Time changes happen often and if your time is changed the preop area will call you the afternoon before. - You and your visitor will be asked to self-screen and do not enter if you have any COVID symptoms. Please call surgeon if you need to reschedule. - A mask is optional within the hospital at this time. PER DR CORTEZ: - No food OR DRINK from 11:30PM 04/01/25 until time of surgery and no smoking, or chewing tobacco (or any form of nicotine). No chewing gum, candy or mints. Take only the following medications with a SIP of water on the morning of surgery: ___ANJEL ELLIPTA MAY USE ALBUTEROL INHALER NEEDED DO NOT STOP ANY OF YOUR OTHER PRESCRIPTION MEDICATIONS PRIOR TO SURGERY EXCEPT THE FOLLOWING Hold all vitamins and supplements for 3 days per anesthesiologist. Medications to discontinue per physician ____HOLD ASPIRIN PER DR CORTEZ Date to take last dose Please no make-up, nail congolese, hairspray, perfume, deodorant, or body powder the day of surgery.? No jewelry (including any body piercings) or valuables the day of surgery, leave them at home.? Please take a shower or bath the night before, or the morning of, surgery with an antibacterial soap.? Wear comfortable, loose fitting clothing.? - Jewelry must be removed prior to entering the operating room.? Rings and piercings that are not removed may be cut off. - The hospital will not accept responsibility for valuables.? - Please leave all valuables, including medications, at home the day of surgery. If you are going home after surgery, a licensed limo driver must drive you home.? - NO public transportation without another adult if you receive anesthesia. - We recommend that an adult stay with you for 24 hours following discharge. - We also recommend that you do not drive, make important decision, drink alcoholic beverages, or take any drugs that were not prescribed by your health care provider for at least 24 hours after your discharge time. Follow any additional instructions given to you from your surgeon. Telephone instructions given to ____PATIENT and asked if any additional questions and then verbalized understanding. Patient advised to call surgeon office or pre surgery nurse liaison [phone] if any additional questions.
--- NOTE | 2025-04-02 06:43 | WPDHPUPDATE1 ---
History and Physical Update Update Date/Time: 04/02/25 06:43 Patient seen and examined in pre-operative holding area. No interval change in medical history or symptoms. Patient recalls previous discussion of benefits and alternatives to procedure. Continues to desire to proceed with left endoscopic possible open carpal tunnel release, left cubital tunnel release and left thumb a1 dai release . Reviewed procedure, post-op expectations and risks including but not limited to bleeding, infection, injury to tendon/nerve/vessel, decreased hand function, stiffness, RSD, no change or worsening of symptoms. I discussed the possible use of assistants and their participation in the case. Patient stated understanding and signed the consent form wishing to proceed.
--- NOTE | 2025-04-02 06:44 | W.PM.PROC2 ---
Procedure Note - Detailed Date of Procedure 04/02/25 Pre-op Diagnosis left carpal and cubital tunnel syndrome and left trigger thumb Post-op Diagnosis Same Procedure Performed left ectr left CuTR and left thumb a1 dai release Surgeon Greg Lockhart MD Quality Lab Technician jason marina pa-c Anesthesia MAC Description of Procedure INFORMED CONSENT: The patient was seen and examined and marked in the pre-op area.? The patient signed the consent form. PROCEDURE IN DETAIL:The patient taken back to OR on the stretcher in supine position. Time out performed with anesthesia, surgeon and staff agreeing on patient's name site and surgery to be performed SCDs were placed on the lower extremities and inflated. A tourniquet was placed on {left} upper extremity and antibiotics given IV After anesthesia administered sedation I injected {10}cc 1%lido with epi and 0.5% marcaine plain at the operative sites The?{left upper extremity}?was prepped and draped in sterile fashion the??{left upper extremity} was? exsanguinated with Esmarch bandage and tourniquet inflated to 250mmHg I made a transverse incision in the {left} volar distal wrist crease through skin and dermis with 15 blade scalpel.? Littler scissors spread down to antebrachial fascia. A small incision was made in antebrachial fascia allowing access to Carpal tunnel. I proceeded with sequential dilation staying in line with the ring finger and hugging the hook of the hamate.? I then used the synovial elevator to free any adhesions from the underside of the transverse carpal ligament. Next I was able to insert the Microaire endoscopic carpal tunnel device with direct visualization of the transverse fibers on the monitor and proceeded with complete segmental retrograde release of the ligament in its entirety.? I irrigated with normal saline and closed with 4-0 monocryl for dermis and subcuticular closure. Next I proceeded with making an oblique incision over the left thumb A1 dai just proximal to the MP joint flexion crease through skin and dermis with a 15 blade scalpel. Littler scissors were used to spread through subcutaneous tissue down to the A1 dai. The A1 dai was identified and initially incised with a 15 blade scalpel. Littler scissors were used to spread above it below it proximally and distally and completed the transection entirely. Ragnell retractor was used withdrawal the FPL tendon for inspection which was free of masses and synovitis and glided smoothly in the sheath without triggering or crepitus. I irrigated normal saline and closed with 4-0 chromic. I next proceeded with making a longitudinal incision between two heads for flexor carpi ulnaris at end of {left} cubital tunnel with 15 blade scalpel.? Littler scissors were used to spread down to FCU fascia.? An incision was made in FCU fascia and ulnar nerve identified exiting cubital tunnel.? I proceeded with complete retrograde release of the cubital tunnel including 7cm proximal for the intermuscular septum.? The nerve appeared healthy with visible vaso nervorum.? There was no subluxation on full elbow range of motion. ? I irrigated with normal saline and closure with 4-0 monocryl for dermis and subcuticular. The incisions were covered with Dermabond at wrist and elbow and xeroform at thumb then 4x4s, moises, and a posterior elbow and volar wrist splint for patient safety, security and comfort and secured with zack bandages after the tourniquet was let down noting the hand was warm and well perfused.? Patient awaken from anesthesia and transferred to recovery in stable condition Complications - none EBL- 1cc Disposition - home in stable condition jason marina pa-c was essential for positioning, retraction, closure and dressing placement G Billing Surgery - Charge Forward: Surgery Billing ([id number] same for jason adding as)
[2025-04-02 06:45] VITALS: BP 148/87; PULSE 71; RESP 16; TEMP 36.9; O2SAT 96
[2025-04-02] MEDS: LACTATED RINGERS 1,000 ML 30 ML IV CONT (06:45)
--- NOTE | 2025-04-02 06:55 | P.PNAN_ITS ---
Anes - Initial Pre Proc Eval Procedure: Operation Date: 04/02/25 07:30 Proposed Procedures p Left Endoscopic Carpal Tunnel Release, Possible Open, Left Cubital Tunnel Release, - Greg Lockhart MD s Left Trigger Thumb Release - Greg Lockhart MD Date/Time: 04/02/25 06:55 Surgeon: Greg Lockhart MD Pre Op Diagnosis: left carpal and cubital tunnel syndrome Patient Data Age: 64 Gender: M Height: 1.8 m Weight: 112 kg Allergies Allergy/AdvReac Type Severity Reaction Status Date / Time suture Allergy Intermediate infection/ Verified 04/01/25 09:57 DRNG Penicillins Allergy Unknown Rash Verified 04/01/25 09:57 lisinopril AdvReac Intermediate cough,swell Verified 04/01/25 09:57 ing hydrochlorothiazide AdvReac Mild hyponatremi Verified 04/01/25 09:57 a Home Medications ?Medication ?Instructions ?Recorded ?Confirmed ?Type aspirin 81 mg tablet,delayed 81 mg PO DAILY 01/30/20 0 03/30/25 History release Held on 03/30/25. Instructions: scheduled surgery atorvastatin 80 mg tablet 80 mg PO DAILY 06/03/2403/11 History empagliflozin 10 mg tablet 10 mg PO DAILY 06/03/24 History (Jardiance) furosemide 20 mg tablet 20 mg PO DAILY 06/03/2403/11 History losartan 100 mg tablet 100 mg PO DAILY 06/03/24 History fluticasone propionate 50 2 spray intranasal DAILY #16 grams 07/29/24 04/01/25 Rx mcg/actuation nasal spray,suspension (Allergy Relief (fluticasone)) fluticasone fur. 200 mcg-umeclid See Rx Instructions . Route 11/12/24 04/01/25 Rx 62.5 mcg-vilant 25 mcg .COMPLEX #60 ea inhalat.powder (Trelegy Ellipta) albuterol 90 mcg/actuation aerosol 90 mcg inhalation Q 4-6H PRN 03/24/25 04/01/25 History inhaler shortness of breath or wheez ing cephalexin 500 mg capsule 500 mg PO QID 10 days #40 ca ps 03/30/25 04/01/25 Rx Patient hx anesthesia problems: none Family hx anesthesia problems: none Results Review: All pre-operative results and documents have been reviewed as part of the pre- operative evaluation. [facility] Past Medical History Medical History History of tobacco abuse 70 pk/yr history. quit 2021 COPD (chronic obstructive pulmonary disease) Arthritis of left wrist primarily STT Shortness of breath on exertion Arthritis, lumbar spine Left leg pain Osteopenia Infrapatellar bursitis of left knee Strain of left soleus muscle Allergic rhinitis Abscess Neoplasm of uncertain behavior of skin Actinic keratoses Eczematous dermatitis Surgical History Surgical History History of cholecystectomy H/O repair of rotator cuff Family History Family History Father Family history of elevated blood lipids Family history of coronary artery disease Family history of heart disease in male family member before age 55 Acute myocardial infarction Sibling Family history of malignant neoplasm of breast in first degree relative Family history of gallbladder disease Mother Family history of lung cancer Other Family history of cardiovascular disease Hypertension Social History Social History Social History: Caffeine-daily Smoking packs per day: 1.25 Smoking cigarettes per day: 25.0 Years smoked: 49 Smoking pack-years: 61.25 Smoking status: Former smoker Tobacco type: cigarettes Smoking end date: 01/07/22 Alcohol intake: current Drinks per week: 20 Alcohol use details: BEER Substance use: never Substance use type: does not use Do You Feel Safe in your Home?: Yes Current Housing: Decline to Answer Concerned About Future Housing: Decline to Answer Difficulty Paying Gas/Electric Bills: Decline to Answer Difficulty Paying for Meds: Decline to Answer Currently Unemployed: Decline to Answer Education: Decline to Answer Difficulty w/ Childcare or Family Care: Decline to Answer Living arrangements: with family Additional living arrangements comments: , DAUGHTER, 3 GRANDCHILDREN Occupation/Education: occupation Additional occupation/education comments: [employer] Gender identity (if verbalized by the patient): Male Spiritual care concerns: No Agree to blood products: Yes Anes - Eval Final PreProcedure Day of Procedure 04/02/25 06:55 Patient weight: obese Lungs: normal air movement Airway: Mallampati scale class II and special considerations (Upper and lower partials. ) Neurological: alert and oriented Last oral intake: >/= 8 hours ASA classification: III Emergent: no Anesthetic plan: proceed Anesthesia type and monitoring: general GIVS and standard monitoring Results Review: All pre-operative results and documents have been reviewed as part of the pre- operative evaluation. COPD ex smoker quit 2021, 60 + pack years, MICHAEL noncompliant w CPAP, HTN, hyperlipidemia. Pt states he can walk 1-2 fos, no cp or sob. Informed Consent: The patient's anesthetic plan and its attendant risks and benefits were discussed with the patient/family/POA. Questions were solicited and answers provided to the satisfaction of the patient/family/POA.
[2025-04-02] MEDS: ACETAMINOPHEN 500 MG TABLET 1000 MG PO (07:00)
[2025-04-02] MEDS: LIDO 1%/EPINEPHRINE 1:100,000 20 ML VIAL 10 ML INFILTRATE (07:27)
[2025-04-02] MEDS: ceFAZolin 2 GM in SODIUM CHLORIDE 0.9% IV 50 ML 100 ML IVPB (07:27)
[2025-04-02 08:04] VITALS: BP 122/70; PULSE 62; RESP 14; O2SAT 95
[2025-04-02 08:30] VITALS: BP 123/73; PULSE 64; RESP 20
[2025-04-02 08:55] VITALS: BP 131/83; PULSE 67; RESP 20
== END 2025-04-02 09:03 | disposition home or self-care (01) ==
PROVIDERS: PCP Family Medicine; Visit Provider Plastic Surgery
PROC: 01N54ZZ Release Median Nerve, Percutaneous Endoscopic Approach (ICD-10-PCS; CPT 29848; principal; 2025-04-02 07:30)
PROC: (CPT 26055; 2025-04-02 07:30)
DX: G56.23 Lesion of ulnar nerve, bilateral upper limbs (principal); G56.03 Carpal tunnel syndrome, bilateral upper limbs; M65.312 Trigger thumb, left thumb; M79.89 Other specified soft tissue disorders; G47.33 Obstructive sleep apnea (adult) (pediatric); I10 Essential (primary) hypertension; E78.5 Hyperlipidemia, unspecified; J44.9 Chronic obstructive pulmonary disease, unspecified; M19.032 Primary osteoarthritis, left wrist; M47.896 Other spondylosis, lumbar region; L57.0 Actinic keratosis; L30.9 Dermatitis, unspecified; E66.9 Obesity, unspecified; Z68.34 Body mass index [BMI] 34.0-34.9, adult; Z79.82 Long term (current) use of aspirin; Z79.84 Long term (current) use of oral hypoglycemic drugs; Z79.51 Long term (current) use of inhaled steroids; Z98.890 Other specified postprocedural states; Z90.49 Acquired absence of other specified parts of digestive tract; Z87.891 Personal history of nicotine dependence; Z80.3 Family history of malignant neoplasm of breast; Z80.1 Family history of malignant neoplasm of trachea, bronchus and lung; Z82.49 Family history of ischemic heart disease and other diseases of the circulatory system
CPT/HCPCS: 64718; 29848; 26055; J0690; A9270; J2003; J2004; J2250; J2405; J2704; J3010; J7120

== ENCOUNTER 2025-04-08 13:50 | Outpatient (CLI) | payer OTHER, SELFPAY ==
--- NOTE | ~2025-04-08 | MR_ITS ---
EXAMINATION: MR abdomen wo/w con DATE: 04/08/2025 15:00 INDICATION: Renal mass TECHNIQUE: Magnetic resonance imaging (MRI) of the abdomen was performed without and with 20 mL Multihance intravenous contrast. Sequences included coronal T2- weighted SS-FSE, coronal and axial FS 2D-FIESTA, axial STIR FSE, axial T2- weighted SS-FSE, axial T2-weighted FS SS-FSE, axial diffusion-weighted SE, axial dual-echo T1-weighted FSPGR, and axial and coronal T1-weighted LAVA. Postcontrast axial T1-weighted LAVA images were obtained in a time course. Postcontrast coronal T1-weighted LAVA images were obtained. COMPARISON: 03/06/2024 FINDINGS: Linear discoid atelectasis anterior right lung base. Heart size is normal. No pericardial or pleural effusion. Prominent diffuse hepatic steatosis. There are multiple scattered subcentimeter T2 hyperintense nonenhancing hepatic cysts. Spleen, pancreas and bilateral adrenal glands are normal. There are also multiple bilateral simple appearing T2 hyperintense nonenhancing renal cysts the largest on the right measuring 1.8 cm. No interval change in a collection of cysts versus Bosniak 2F multi septated cystic lesion in the anterior left kidney which measures approximately 5.3 x 1.9 cm. The internal septations remain <2 mm in thickness without discernible enhancement or evident solid nodular soft tissu e component. The previously seen increased T1 signal within one of the cystic components of the lesion which likely represent blood or proteinaceous fluid has resolved. Visualized portions of bowels including the appendix are normal. No pathologically enlarged abdominal or upper pelvic lymphadenopathy. Mild lumbar levocurvature with mild spondylosis. IMPRESSION: 1. No interval change in size of a 5.3 x 1.9 cm collection of cysts versus Bosniak 2F complex cystic mass in the left kidney. Reviewed, dictated and finalized at location A. IMPRESSION: 1. No interval change in size of a 5.3 x 1.9 cm collection of cysts versus Bosn iak 2F complex cystic mass in the left kidney.
--- OUTSIDE RECORDS SUMMARY | 2025-04-08 14:10 | XMS_ITS | Clinical Summary ---
Author Organization [facility] Address [address] [place] [id number] Care Team Providers Care Drop Crew Laborer Name Role Phone Leonard Good MD Primary Care Provider [phone]- [phone] Social History Tobacco Use Types Packs/Day Years [...] Annual Medicare Wellness Visit 2023 PHQ-2 (Physician [place]) 07/10/2024 COVID-19 Vaccine (3 - 2024-2 6 [...] this topic Meningococcal Vaccine Aged Out No ghazla jhonathan eligible based on patient's age to complete this topic RSV Immunizations Under 20 Months Aged Out No longer eligible b ased on patient's age to complete this topic Insurance [employer] Care Teams Drop Crew Laborer Relationship Specialty Start Date End Date Leonard Good MD [address] [facility] [place] [address] PCP - General FAMILY PRACTICE 05/16/24
--- OUTSIDE RECORDS SUMMARY | 2025-04-08 14:10 | XMS_ITS | Clinical Summary ---
Author Organization [facility] [address] Address [address] [place] [address] Care Team Providers Care Linoleum Layer Apprentice Name Role Phone Olivia Good MD Primary [...] (12/09/2021): Added automatically from request for surgery [id number] Abnormal stress test 12/09/2021 Overview (12/09/2021): Added automatically from request for surgery [id number] Surgical History Surgery Date Site/Laterality Comments OTHER SURGICAL HISTORY vein surgery scrotum ROTATOR CUFF REPAIR Bilateral one side 1996 and other side 1995 CHOLECYSTECTOMY CARPAL TUNNEL RELEASE Left Medical History Medical History Date Comments Eczema Arthritis, lumbar spine Actinic keratoses Hypertension COPD (chronic obstructive pulmonary disease) [place] (myocardial infarction) (HCC) SOB (shortness of breath) [...] on file Legal Sex Male 2:47 AM STRING TOP SEALER Gender Identity Not on file Sexual Orientation Not on file Obstetrics History Last Filed Vital Signs Vital Sign Reading Time Taken Comments Blood Pressure 162/88 05/15/2024 8:29 AM STRING TOP SEALER Pulse 67 03/27/2024 8:47 AM CDT Temperature [...] Screening-PSA 1958 Pneumococcal vaccine 65+ (1 of 1 - PCV) 2008 Zoster Vaccine (1 of 2) 2008 Fall Risk Assessment 12/31/2022 12/31/2021 Abdominal Aortic Aneurysm (A AA) Screen 2023 Well Visit 65+ 2023 Covid-19 Vaccine (2 - season) 03/10/202502/2021 Influenza Vaccine (#1) 2025 06/08/2021 DTaP/Tdap/Td Vaccine (2 - Td or Tdap) 11/01/2026 Hepatitis B Screening Completed 04/05/2016 , 10/23/2015, 09/25/2015 Medical Devices Implanted Type Area Missile Tracking Technician Device Identifier Shelf Expiration Date Model / Serial / Lot [employer] Device 10ml 5fr Closure Mynx Control 2 Mode Balloon Catheter [id number] - [id number] Implanted:Qty: 1 on 12/31/2021 by Nirav Stanton MD at [facility] [employer] 12/08/2023 [id number] / / [id number] Insurance [employer] ADVANTAGE CHOICE PPO Care Teams Linoleum Layer Apprentice Relationship Specialty Start Date End Date Olivia Good MD PCP - General Family Medicine 03/02/22
== END 2025-04-08 13:51 | disposition home or self-care (01) ==
PROVIDERS: PCP Family Medicine; Visit Provider Urology
DX: N28.89 Other specified disorders of kidney and ureter (principal)
CPT/HCPCS: 74183; A9577

== ENCOUNTER 2025-04-18 08:04 | Outpatient (CLI) | payer OTHER, SELFPAY ==
--- OUTSIDE RECORDS SUMMARY | 2025-04-18 08:08 | XMS_ITS | Clinical Summary ---
Author Organization [facility] [address] Address [address] [place] [address] Care Team Providers Care Claim Attorney Name Role Phone Olivia Good MD Primary [...] (12/09/2021): Added automatically from request for surgery [id number] Abnormal stress test 12/09/2021 Overview (12/09/2021): Added automatically from request for surgery [id number] Surgical History Surgery Date Site/Laterality Comments OTHER SURGICAL HISTORY vein surgery scrotum ROTATOR CUFF REPAIR Bilateral one side 1996 and other side 1995 CHOLECYSTECTOMY CARPAL TUNNEL RELEASE Left Medical History Medical History Date Comments Eczema Arthritis, lumbar spine Actinic keratoses Hypertension COPD (chronic obstructive pulmonary disease) [place] (myocardial infarction) (HCC) SOB (shortness of breath) [...] on file Legal Sex Male 2:47 AM PSYCHOLOGIST MILITARY PERSONNEL Gender Identity Not on file Sexual Orientation Not on file Obstetrics History Last Filed Vital Signs Vital Sign Reading Time Taken Comments Blood Pressure 162/88 05/15/2024 8:29 AM PSYCHOLOGIST MILITARY PERSONNEL Pulse 67 03/27/2024 8:47 AM CDT Temperature [...] 10/23/2015, 09/25/2015 Medical Devices Implanted Type Area Sneller Hand Device Identifier Shelf Expiration Date Model / Serial / Lot Access [employer] Device 10ml 5fr Closure Mynx Control 2 Mode Balloon Catheter [id number] - [id number] Implanted:Qty: 1 on 12/31/2021 by Nirav Stanton MD at [facility] [employer] 12/08/2023 [id number] / / [id number] Insurance [employer] ADVANTAGE CHOICE PPO Care Teams Claim Attorney Relationship Specialty Start Date End Date Olivia Good MD PCP - General Family Medicine 03/02/22
--- OUTSIDE RECORDS SUMMARY | 2025-04-18 08:08 | XMS_ITS | Clinical Summary ---
Author Organization [facility] Address [address] [place] [address] Care Team Providers Care Production Wood Craftsman Name Role Phone Leonard Good MD Primary Care Provider +1- [phone] Social History Tobacco Use Types Packs/Day Years [...] Annual Medicare Wellness Visit 2023 PHQ-2 (Physician [place]) 07/10/2024 COVID-19 Vaccine (3 - 2024-2 6 season) 2025 06/20/2023, 09/14/2020 Influenza Adult (#1) 2025 06/20/2023, 05/10/2022, 06/08/2021 DTaP, Tdap and Td Vaccines ( 2 [...] complete this topic Insurance [employer] Care Teams Production Wood Craftsman Relationship Specialty Start Date End Date Leonard Good MD [facility] [address] [address] PCP - General FAMILY PRACTICE 05/16/24
--- NOTE | 2025-04-18 08:19 | ECG_ITS ---
Test Date: 2025-04-18 08:30:24 Measurements Intervals [place] Rate: 66 P: 29 [place]: 154 QRS: -40 QRSD: 99 T: 55 QT: 414 QTc: 435 Interpretive Statements SINUS RHYTHM LEFT AXIS DEVIATION DELAYED PRECORDIAL R/S TRANSITION BORDERLINE ECG No previous ECG available for comparison Electronically Signed On 04-18-2025 08:37:05 CDT by Chuckie Angeles D.O.
== END 2025-04-18 08:05 | disposition home or self-care (01) ==
LOC: ANHSURGERY 08:06
PROVIDERS: PCP Family Medicine; Visit Provider Orthopaedic Surgery
DX: E78.5 Hyperlipidemia, unspecified (principal); I10 Essential (primary) hypertension; Z87.891 Personal history of nicotine dependence; R94.31 Abnormal electrocardiogram [ECG] [EKG]
CPT/HCPCS: 93005

== ENCOUNTER 2025-04-23 00:59 | Day surgery (SDC) | payer OTHER, SELFPAY ==
[2025-04-16 13:42] VITALS: BMI 34.1
--- NOTE | 2025-04-16 13:51 | PC.NURSE ---
[facility] has started construction of its new state of the art ER which will open Spring 2026. With this, we anticipate parking may be a challenge for some our surgical patients and families. Parking spaces are limited but are available for all Surgical, obstetrics, and ER patients sharing this lot. If you arrive and find you are having a hard time finding a parking space, please note that we understand the challenges, please drive around the hospital and park near Hospital Entrance 1. When you enter this entrance, you can ask a volunteer to direct or take you back to the surgical waiting area to check in. We appreciate everyone?s understanding of these expected challenges while we build for your future. Report to the Outpatient Waiting Room, entrance under the green pavilion located off [address], at time _08:00am on date _04/23/25 . Planned Procedure Time: __10:00am .? Time changes happen often and if your time is changed the preop area will call you the afternoon before. - You and your visitor will be asked to self-screen and do not enter if you have any COVID symptoms. Please call surgeon if you need to reschedule. - A mask is optional within the hospital at this time. Patients may have clear liquids (water, carbonated beverages, clear teas, apple juice) until 3 hours prior to surgery with a maximum of 20 ounces. - No food from midnight until time of surgery and no smoking, or chewing tobacco (or any form of nicotine). No chewing gum, candy or mints. (0700am) Take only the following medications with a SIP of water on the morning of surgery: __NONE DO NOT STOP ANY OF YOUR OTHER PRESCRIPTION MEDICATIONS PRIOR TO SURGERY EXCEPT THE FOLLOWING Hold all vitamins and supplements for 3 days per anesthesiologist. Medications to discontinue per physician ____Aspirin or NSAIDS for [address] Ribera Date to take last dose 04/17/25 Please no make-up, nail citizen of [place], hairspray, perfume, deodorant, or body powder the day of surgery.? No jewelry (including any body piercings) or valuables the day of surgery, leave them at home.? Please take a shower or bath the night before, or the morning of, surgery with an antibacterial soap or HIBICLEANSE if you have it and want to use it. Wear comfortable, loose fitting clothing.?. - Jewelry must be removed prior to entering the operating room.? Rings and piercings that are not removed may be cut off. - The hospital will not accept responsibility for valuables.? - Please leave all valuables, including medications, at home the day of surgery. If you are going home after surgery, a licensed local truck driver must drive you home.? - NO public transportation without another adult if you receive anesthesia. - We recommend that an adult stay with you for 24 hours following discharge. - We also recommend that you do not drive, make important decision, drink alcoholic beverages, or take any drugs that were not prescribed by your health care provider for at least 24 hours after your discharge time. Follow any additional instructions given to you from your surgeon. Telephone instructions given to __Patient and asked if any additional questions and then verbalized understanding. Patient advised to call surgeon office or pre surgery nurse liaison [phone] if any additional questions.
--- NOTE | 2025-04-22 07:00 | P.HP_ITS ---
H&P: HPI History of Present Illness Date/Time: 04/22/25 07:00 Chief Complaint: Patient has catching locking and pain in the right knee. He has mechanical symptoms. And has failed conservative treatment. He would like to consider arthroscopic intervention. Review of Systems Musculoskeletal: Musculoskeletal: Reports arthralgias, Reports joint swelling and Reports stiffness Neurologic: Reports abnormal gait [facility] Past Medical History Medical History History of tobacco abuse 70 pk/yr history. quit 2021 COPD (chronic obstructive pulmonary disease) Arthritis of left wrist primarily STT Shortness of breath on exertion Arthritis, lumbar spine Left leg pain Osteopenia Infrapatellar bursitis of left knee Strain of left soleus muscle Allergic rhinitis Abscess Neoplasm of uncertain behavior of skin Actinic keratoses Eczematous dermatitis Surgical History Surgical History History of cholecystectomy H/O repair of rotator cuff Family History Family History Father Family history of elevated blood lipids Family history of coronary artery disease Family history of heart disease in male family member before age 55 Acute myocardial infarction Sibling Family history of malignant neoplasm of breast in first degree relative Family history of gallbladder disease Mother Family history of lung cancer Other Family history of cardiovascular disease Hypertension Social History Social History Social History: Caffeine-daily Smoking packs per day: 1.25 Smoking cigarettes per day: 25.0 Years smoked: 49 Smoking pack-years: 61.25 Smoking status: Former smoker Tobacco type: cigarettes Smoking end date: 01/07/22 Additional smoking assessment comments: 01/07/2022 Alcohol intake: current Drinks per week: 20 Alcohol use details: BEER Substance use: never Substance use type: does not use Do You Feel Safe in your Home?: Yes Current Housing: Decline to Answer Concerned About Future Housing: Decline to Answer Difficulty Paying Gas/Electric Bills: Decline to Answer Difficulty Paying for Meds: Decline to Answer Currently Unemployed: Decline to Answer Education: Decline to Answer Difficulty w/ Childcare or Family Care: Decline to Answer Living arrangements: with family Additional living arrangements comments: [place] Occupation/Education: occupation Additional occupation/education comments: [employer] Gender identity (if verbalized by the patient): Male Spiritual care concerns: No Agree to blood products: Yes Meds Home Medications and Allergies Home Medications ?Medication ?Instructions ?Recorded ?Confirmed ?Type aspirin 81 mg tablet,delayed 81 mg PO DAILY 01/30/20 1 History release atorvastatin 80 mg tablet 80 mg PO DAILY 06/03/2403/03 History empagliflozin 10 mg tablet 10 mg PO DAILY 06/03/2403/03 History (Jardiance) furosemide 20 mg tablet 20 mg PO DAILY 06/03/2403/03 History losartan 100 mg tablet 100 mg PO DAILY 06/03/2403/03 History fluticasone propionate 50 2 spray intranasal DAILY #16 grams 07/29/24 04/16/25 Rx mcg/actuation nasal spray,suspension (Allergy Relief (fluticasone)) albuterol 90 mcg/actuation aerosol 90 mcg inhalation Q 4-6H PRN 03/24/25 04/16/25 History inhaler shortness of breath or wheez ing fluticasone fur. 200 mcg-umeclid See Rx Instructions . Route 04/21/25 Rx 62.5 mcg-vilant 25 mcg .COMPLEX #60 ea inhalat.powder (Trelegy Ellipta) Allergies Allergy/AdvReac Type Severity Reaction Status Date / Time suture Allergy Intermediate infection/ Verified 04/16/25 13:40 DRNG Penicillins Allergy Unknown Rash Verified 04/16/25 13:40 lisinopril AdvReac Intermediate cough,swell Verified 04/16/25 13:40 ing hydrochlorothiazide AdvReac Mild hyponatremi Verified 04/16/25 13:40 a Exam Narrative: On exam he has catching locking and pain of his right knee is mechanical-type symptoms. Neurologically he is intact. Pain with any manipulation. He walks with a limp. He has pain with any manipulation. Neck: Neck: supple Resp: Effort & Inspection: normal respiratory effort Cardio: Rate: regular rate Rhythm: regular rhythm Radiology Reports: Comments: Magnetic Resonance Report Signed Patient: Tehodore Avalos EXAMINATION: MR knee RT wo con DATE: 03/25/2025 08:14 INDICATION: Pain in right knee. TECHNIQUE: Magnetic resonance imaging (MRI) of the right knee was performed without intravenous contrast. Sequences included axial PD-weighted FS FSE, coronal PD-weighted FSE and PD-weighted FS FSE, sagittal PD-weighted FSE, and sagittal T2-weighted FS FSE. COMPARISON: Right knee radiographs 02/27/2025 FINDINGS: Medial compartment: There is a complex tear of body and posterior horn of medial meniscus. There is cartilage surface irregularity of tibial condyle and femoral condyle. There are tiny osteophytes. Lateral compartment: Lateral meniscus is normal. The lateral compartment cartilage is normal. There are tiny osteophytes. Patellofemoral compartment: There is shallow partial-thickness cartilage loss of patellar medial and lateral facets and median ridge. There is deep partial-thickness cartilage loss of patellar odd facet with mild subchondral edema-like marrow signal intensity. There is deep partial-thickness cartilage loss of medial trochlea and shallow partial-thickness cartilage loss of lateral trochlea. Ligaments and tendons: The anterior and posterior cruciate ligaments are normal. There are changes of prior sprains of medial collateral ligament and lateral collateral ligament characterized by thickening and increased signal intensity proximally. There is mild patellar tendinopathy. Fluid: There is a small knee joint effusion. There is moderate prepatellar and superficial infrapatellar bursitis. There is trace fluid in a Kingsley's cyst. There is semimembranosus-tibial collateral ligament bursitis and pes anserinus bursitis with multiloculated fluid measuring 7.4 x 1.8 x 1.6 cm. IMPRESSION: 1. Moderate chondrosis of patellofemoral compartment and mild chondrosis of medial compartment. 2. Complex tear of medial meniscus. 3. Posteromedial knee bursitis. 4. Small knee joint effusion. Reviewed, dictated and finalized at location E. Hand X-Ray 04/20/22 Hip/Pelvis X-Ray 10/30/20 Hip MRI 11/25/20 Knee X-Ray 02/27/25 Knee MRI 04/01/25 Wrist X-Ray 07/19/22 Orthopedics Result Report 02/27/25 Lumbar Spine X-Ray 02/18/21 Lumbar Spine MRI 02/23/21 Assessment and Plan Assessment and plan (1) Acute medial meniscus tear of right knee: Code(s): S83.241A - Other tear of medial meniscus, current injury, right knee, initial encounter Status: Acute Assessment and Plan: Patient is a meniscal tear right knee. He has catching locking and pain. Mechanical-type symptoms and has failed conservative treatment. He would like to proceed with arthroscopic intervention. I have discussed this with him including the risks, benefits, limitations, and alternatives in detail. Will proceed per his request.
[2025-04-23] MEDS: KETOROLAC 15 MG/ML VIAL (*BKC) IV PUSH (06:45)
[2025-04-23] MEDS: ACETAMINOPHEN 500 MG TABLET 1000 MG PO (06:45)
[2025-04-23 07:00] VITALS: BP 157/87; PULSE 66; RESP 16; TEMP 36.7; O2SAT 96
--- NOTE | 2025-04-23 07:52 | SUR.PREOP ---
0730: SURGERY CANCELLED R/T MD ILLNESS. SPOKE W/ PT AND FAMILY; AWARE TO CALL OFFICE FOR RESCHEDULE. DC INSTRUCTIONS GIVEN. 0745:PT DC'D AMBULATORY ACCOMP BY FAMILY.
== END 2025-04-23 09:45 | disposition home or self-care (01) ==
PROVIDERS: PCP Family Medicine; Visit Provider Orthopaedic Surgery
PROC: (CPT 29870; principal; 2025-04-23 08:30)
DX: S83.231A Complex tear of medial meniscus, current injury, right knee, initial encounter (principal); Z53.8 Procedure and treatment not carried out for other reasons; M25.761 Osteophyte, right knee; M94.261 Chondromalacia, right knee; M25.461 Effusion, right knee; E78.5 Hyperlipidemia, unspecified; I10 Essential (primary) hypertension; J44.9 Chronic obstructive pulmonary disease, unspecified; G47.33 Obstructive sleep apnea (adult) (pediatric); M19.032 Primary osteoarthritis, left wrist; M47.896 Other spondylosis, lumbar region; M85.88 Other specified disorders of bone density and structure, other site; L57.0 Actinic keratosis; L30.8 Other specified dermatitis; X58.XXXA Exposure to other specified factors, initial encounter; E66.9 Obesity, unspecified; Z68.34 Body mass index [BMI] 34.0-34.9, adult; Z79.82 Long term (current) use of aspirin; Z79.84 Long term (current) use of oral hypoglycemic drugs; Z79.51 Long term (current) use of inhaled steroids; Z98.890 Other specified postprocedural states; Z90.49 Acquired absence of other specified parts of digestive tract; Z87.891 Personal history of nicotine dependence; Z80.3 Family history of malignant neoplasm of breast; Z80.1 Family history of malignant neoplasm of trachea, bronchus and lung; Z82.49 Family history of ischemic heart disease and other diseases of the circulatory system
CPT/HCPCS: 99212; A9270; G0463; J1885

== ENCOUNTER 2025-04-28 00:54 | Day surgery (SDC) | payer OTHER, SELFPAY ==
[2025-04-24 08:33] VITALS: BMI 34.1
--- NOTE | 2025-04-24 08:40 | PC.NURSE ---
[facility] has started construction of its new state of the art ER which will open Spring 2026. With this, we anticipate parking may be a challenge for some our surgical patients and families. Parking spaces are limited but are available for all Surgical, obstetrics, and ER patients sharing this lot. If you arrive and find you are having a hard time finding a parking space, please note that we understand the challenges, please drive around the hospital and park near Hospital Entrance 1. When you enter this entrance, you can ask a volunteer to direct or take you back to the surgical waiting area to check in. We appreciate everyone?s understanding of these expected challenges while we build for your future. Report to the Outpatient Waiting Room, entrance under the green pavilion located off [address], at time ____0900am___ on date _04/28/25 . Planned Procedure Time: _1100am .? Time changes happen often and if your time is changed the preop area will call you the afternoon before. - You and your visitor will be asked to self-screen and do not enter if you have any COVID symptoms. Please call surgeon if you need to reschedule. - A mask is optional within the hospital at this time. Patients may have clear liquids (water, carbonated beverages, clear teas, apple juice) until 3 hours prior to surgery with a maximum of 20 ounces. - No food from midnight until time of surgery and no smoking, or chewing tobacco (or any form of nicotine). No chewing gum, candy or mints. - Infants may have breast milk until 4 hours before surgery, infant formula 6 hours prior to surgery. - Children will be allowed to drink immediately following surgery.? If applicable, please bring a bottle or sippy cup to assist with drinking. Juice, water, soda, and popsicles are readily available.? For infants on formula, please bring formula the day of surgery.? Pacifiers are allowed. Take only the following medications with a SIP of water on the morning of surgery: ____NONE DO NOT STOP ANY OF YOUR OTHER PRESCRIPTION MEDICATIONS PRIOR TO SURGERY EXCEPT THE FOLLOWING Hold all vitamins and supplements for 3 days per anesthesiologist. Medications to discontinue per physician HOLD Aspirin [address] Ribera Date to take last dose__04/17/25 Please no make-up, nail micronesian, hairspray, perfume, deodorant, or body powder the day of surgery.? No jewelry (including any body piercings) or valuables the day of surgery, leave them at home.? Please take a shower or bath the night before, or the morning of, surgery with an antibacterial soap.? Wear comfortable, loose fitting clothing.? - Jewelry must be removed prior to entering the operating room.? Rings and piercings that are not removed may be cut off. - The hospital will not accept responsibility for valuables.? - Please leave all valuables, including medications, at home the day of surgery. If you are going home after surgery, a licensed driver's license reviewing officer must drive you home.? - NO public transportation without another adult if you receive anesthesia. - We recommend that an adult stay with you for 24 hours following discharge. - We also recommend that you do not drive, make important decision, drink alcoholic beverages, or take any drugs that were not prescribed by your health care provider for at least 24 hours after your discharge time. Follow any additional instructions given to you from your surgeon. Telephone instructions given to __Patient and asked if any additional questions and then verbalized understanding. Patient advised to call surgeon office or pre surgery nurse liaison [phone] if any additional questions.
--- OUTSIDE RECORDS SUMMARY | 2025-04-28 00:57 | XMS_ITS | Clinical Summary ---
Author Organization [facility] Address [address] [place] [address] Care Team Providers Care Pre Press Manager Name Role Phone Leonard Good MD Primary Care Provider +1- [phone] Social History Tobacco Use Types Packs/Day Years [...] Annual Medicare Wellness Visit 2023 PHQ-2 (Physician [place]) 07/10/2024 COVID-19 Vaccine (3 - 2024-2 6 season) 2025 06/20/2023, 09/14/2020 Influenza Adult (#1) 2025 06/20/2023, 05/10/2022, 06/08/2021 DTaP, Tdap and Td Vaccines ( 2 - Td or Tdap) 11/01/2026 11/01/2016 RSV Immunization or 60+ Years (1 - 1-dose 75+ series) 2033 Pneumococcal Vaccine: 50+ Years Completed 06/20/2023, 05/10/2022 Hepatitis A Vaccines Aged Out No long er eligible based on patient's age to complete this topic Meningococcal B Vaccine Aged Out No l onger eligible based on patient's age to complete this topic Meningococcal Vaccine Aged Out No ghazal jhonathan eligible based on patient's age to complete this topic RSV Immunizations Under 20 Months Aged Out No longer eligible b ased on patient's age to complete this topic Insurance [employer]ENCE Care Teams Pre Press Manager Relationship Specialty Start Date End Date Leonard Good MD [facility] [address] [address] PCP - General FAMILY PRACTICE 05/16/24
--- OUTSIDE RECORDS SUMMARY | 2025-04-28 00:57 | XMS_ITS | Clinical Summary ---
Author Organization [facility] [address] Address [address] [place] [address] Care Team Providers Care Stitch Cleaner Name Role Phone Olivia Good MD Primary [...] (12/09/2021): Added automatically from request for surgery [id number] Abnormal stress test 12/09/2021 Overview (12/09/2021): Added automatically from request for surgery [id number] Surgical History Surgery Date Site/Laterality Comments OTHER [...] on file Legal Sex Male 2:47 AM INFORMATION TECHNOLOGY ARCHITECT Gender Identity Not on file Sexual Orientation Not on file Obstetrics History Last Filed Vital Signs Vital Sign Reading Time Taken Comments Blood Pressure 162/88 05/15/2024 8:29 AM INFORMATION TECHNOLOGY ARCHITECT Pulse 67 03/27/2024 8:47 AM CDT Temperature [...] 10/23/2015, 09/25/2015 Medical Devices Implanted Type Area Check Writer Salesperson Device Identifier Shelf Expiration Date Model / Serial / Lot [employer] Device 10ml 5fr Closure Mynx Control 2 Mode Balloon Catheter [id number] - [id number] Implanted:Qty: 1 on 12/31/2021 by Nirav Stanton MD at [facility] [employer] 12/08/2023 [id number] / / [id number] Insurance [employer] ADVANTAGE CHOICE PPO Care Teams Stitch Cleaner Relationship Specialty Start Date End Date Olivia Good MD PCP - General Family Medicine 03/02/22
--- NOTE | 2025-04-28 08:04 | WPDANESEPPF ---
Anes - Initial Pre Proc Eval Procedure: Operation Date: 04/28/25 11:00 Proposed Procedures p Right Knee Arthroscopy, Partial Meniscectomy, Proceed As Indicated - Angel Ribera MD Date/Time: 04/28/25 08:04 Surgeon: Angel Ribera MD Pre Op Diagnosis: right knee medial meniscal tear Patient Data Age: 64 Gender: M Height: 1.8 m Weight: 111 kg Allergies Allergy/AdvReac Type Severity Reaction Status Date / Time suture Allergy Intermediate infection/ Verified 04/28/25 09:49 DRNG Penicillins Allergy Unknown Rash Verified 04/28/25 09:49 lisinopril AdvReac Intermediate cough,swell Verified 04/28/25 09:49 ing hydrochlorothiazide AdvReac Mild hyponatremi Verified 04/28/25 09:49 a Home Medications ?Medication ?Instructions ?Recorded ?Confirmed ?Type aspirin 81 mg tablet,delayed 81 mg PO DAILY 01/30/20 04/28/25 History release atorvastatin 80 mg tablet 80 mg PO DAILY 06/03/24 04/28/25 History empagliflozin 10 mg tablet 10 mg PO DAILY 06/03/24 04/28/25 History (Jardiance) furosemide 20 mg tablet 20 mg PO DAILY 06/03/24 04/28/25 History losartan 100 mg tablet 100 mg PO DAILY 06/03/24 04/28/25 History fluticasone propionate 50 2 spray intranasal DAILY #16 grams 07/29/24 04/24/25 Rx mcg/actuation nasal spray,suspension (Allergy Relief (fluticasone)) albuterol 90 mcg/actuation aerosol 90 mcg inhalation Q4-6H PRN 03/24/25 04/24/25 History inhaler shortness of breath or wheezing fluticasone fur. 200 mcg-umeclid See Rx Instructions .Route 04/21/25 04/24/25 Rx 62.5 mcg-vilant 25 mcg .COMPLEX #60 ea inhalat.powder (Trelegy Ellipta) hydrocodone 7.5 mg-acetaminophen 1 tablet PO Q4H PRN pain #40 tabs 04/28/25 Rx 325 mg tablet Patient hx anesthesia problems: none Family hx anesthesia problems: none Results Review: All pre-operative results and documents have been reviewed as part of the pre-operative evaluation. [facility] Past Medical History Medical History (Updated 04/28/25 @ 08:05 by Robert Benitez DO) Hyperlipidemia Hypertension History of tobacco abuse 70 pk/yr history. quit 2021 COPD (chronic obstructive pulmonary disease) Arthritis of left wrist primarily STT Shortness of breath on exertion Arthritis, lumbar spine Left leg pain Osteopenia Infrapatellar bursitis of left knee Strain of left soleus muscle Allergic rhinitis Abscess Neoplasm of uncertain behavior of skin Actinic keratoses Eczematous dermatitis Surgical History Surgical History History of cholecystectomy H/O repair of rotator cuff Family History Family History Father Family history of elevated blood lipids Family history of coronary artery disease Family history of heart disease in male family member before age 55 Acute myocardial infarction Sibling Family history of malignant neoplasm of breast in first degree relative Family history of gallbladder disease Mother Family history of lung cancer Other Family history of cardiovascular disease Hypertension Social History Social History Social History: Caffeine-daily Smoking packs per day: 1.25 Smoking cigarettes per day: 25.0 Years smoked: 49 Smoking pack-years: 61.25 Smoking status: Former smoker Tobacco type: cigarettes Smoking end date: 12/31/21 Additional smoking assessment comments: 01/07/2022 Alcohol intake: current Drinks per week: 20 Alcohol use details: BEER Substance use: never Substance use type: does not use Do You Feel Safe in your Home?: Yes Current Housing: Decline to Answer Concerned About Future Housing: Decline to Answer Difficulty Paying Gas/Electric Bills: Decline to Answer Difficulty Paying for Meds: Decline to Answer Currently Unemployed: Decline to Answer Education: Decline to Answer Difficulty w/ Childcare or Family Care: Decline to Answer Living arrangements: with family Additional living arrangements comments: [place] Occupation/Education: occupation Additional occupation/education comments: [employer] Gender identity (if verbalized by the patient): Male Spiritual care concerns: No Agree to blood products: Yes Anes - Eval Final PreProcedure Day of Procedure 04/28/25 08:04 Patient weight: obese Heart: regular rate and rhythm Lungs: clear to auscultation Airway: Mallampati scale class III Neurological: alert and oriented Last oral intake: >/= 8 hours ASA classification: III Emergent: no Anesthetic plan: proceed Anesthesia type and monitoring: general LMA and standard monitoring Results Review: All pre-operative results and documents have been reviewed as part of the pre-operative evaluation. Informed Consent: The patient's anesthetic plan and its attendant risks and benefits were discussed with the patient/family/POA. Questions were solicited and answers provided to the satisfaction of the patient/family/POA.
--- NOTE | 2025-04-28 09:07 | WPDHPUPDATE1 ---
History and Physical Update Update Date/Time: 04/28/25 09:07 History and Physical has been reviewed, including an updated exam of the patient. There are NO changes in the patient's condition. Risks, benefits, and alternatives have been discussed and questions answered. Patient agrees to proceed with procedure. Will proceed with arthroscopy partial menisectomy, proceed as indicated. I reminded him that I can't change any underlying arthritis.
[2025-04-28 09:20] VITALS: BP 142/79; PULSE 67; RESP 18; TEMP 36.7; O2SAT 100
[2025-04-28] MEDS: ACETAMINOPHEN 500 MG TABLET 1000 MG PO (09:38)
[2025-04-28] MEDS: KETOROLAC 15 MG/ML VIAL (*BKC) IV PUSH (09:45)
[2025-04-28] MEDS: ceFAZolin 2 GM in SODIUM CHLORIDE 0.9% IV 50 ML 100 ML IVPB (10:48)
[2025-04-28] MEDS: LIDO 1%/EPINEPHRINE 1:100,000 50 ML VIAL (11:09)
--- NOTE | 2025-04-28 11:17 | W.PM.PROC2 ---
Procedure Note - Detailed Date of Procedure 04/28/25 Pre-op Diagnosis Right knee medial meniscal tear Post-op Diagnosis Same Procedure Performed RIGHT knee arthroscopy with partial meniscectomy Surgeon Angel Ribera MD Anesthesia General Indications Pain, Locking and Catching Description of Procedure Patient brought to operating room # 7. An anesthetic was administered. The knee was sterilely prepped and draped in the usual manner. Standard portals were used. Superior medial portal was used for the outflow cannula, inferior lateral portal was used for the scope, inferior medial portal was used for the instruments. Arthroscopy was performed, the patellar femoral joint degenerative changes. The medial compartment showed a complex tear. The lateral compartment showed fraying. The ACL was intact. Using baskets and vladimir the meniscal tear was trimmed back to a stable base so the nothing further could be pulled into the joint. Any loose or delaminated fragments were gently trimmed to a stable base. At this point the instruments were withdrawn, sutures placed and patient left the operating room in satisfactory condition. Estimated Blood Loss 20 Drains No Packing No Pathology None sent Complications No immediate complications Condition Stable Disposition PACU [facility] Billing Surgery - Charge Forward: Surgery Billing ([id number] [facility])
[2025-04-28 11:25] VITALS: BP 130/73; PULSE 65; RESP 18; TEMP 36.6; O2SAT 100
[2025-04-28] MEDS: LACTATED RINGERS 1,000 ML 30 ML IV CONT (11:25)
[2025-04-28 11:40] VITALS: BP 136/78; PULSE 61; RESP 16; O2SAT 100
[2025-04-28 11:55] VITALS: BP 131/73; PULSE 60; RESP 16; O2SAT 96
[2025-04-28 12:08] VITALS: BP 152/82; PULSE 73; RESP 16
[2025-04-28 12:35] VITALS: BP 149/83; PULSE 65; RESP 16
== END 2025-04-28 12:56 | disposition home or self-care (01) ==
PROVIDERS: PCP Family Medicine; Visit Provider Orthopaedic Surgery
PROC: (CPT 29870; principal; 2025-04-28 11:00)
DX: S83.231A Complex tear of medial meniscus, current injury, right knee, initial encounter (principal); M94.261 Chondromalacia, right knee; M25.461 Effusion, right knee; X58.XXXA Exposure to other specified factors, initial encounter; E78.5 Hyperlipidemia, unspecified; I10 Essential (primary) hypertension; J44.9 Chronic obstructive pulmonary disease, unspecified; M19.032 Primary osteoarthritis, left wrist; M47.896 Other spondylosis, lumbar region; M85.88 Other specified disorders of bone density and structure, other site; L57.0 Actinic keratosis; L30.8 Other specified dermatitis; E66.9 Obesity, unspecified; Z68.34 Body mass index [BMI] 34.0-34.9, adult; Z79.82 Long term (current) use of aspirin; Z79.84 Long term (current) use of oral hypoglycemic drugs; Z79.51 Long term (current) use of inhaled steroids; Z79.891 Long term (current) use of opiate analgesic; Z98.890 Other specified postprocedural states; Z90.49 Acquired absence of other specified parts of digestive tract; Z87.891 Personal history of nicotine dependence; Z80.3 Family history of malignant neoplasm of breast; Z80.1 Family history of malignant neoplasm of trachea, bronchus and lung; Z82.49 Family history of ischemic heart disease and other diseases of the circulatory system
CPT/HCPCS: 29881; J0690; A9270; J1100; J1885; J2003; J2004; J2405; J2704; J3010; J7120

== ENCOUNTER 2025-05-01 10:35 | Outpatient (CLI) | payer OTHER, SELFPAY ==
--- NOTE | ~2025-05-01 | US_ITS ---
EXAMINATION: US venous doppler LE RT DATE: 05/01/2025 11:55 INDICATION: Right lower limb pain, swelling and erythema. TECHNIQUE: Grayscale ultrasound images without and with compression and Doppler ultrasound images of the right lower extremity veins were obtained. COMPARISON: None. FINDINGS: Vascular flow is seen within the right profunda (deep) femoral vein but which is only partially compressible consistent with likely small amount of nonocclusive thrombus. The visualized portions of right common femoral vein, femoral vein, popliteal vein, peroneal trunk, posterior tibial veins, peroneal veins and greater saphenous vein outflow are patent. IMPRESSION: 1. Small amount of above the knee nonocclusive deep venous thrombosis within the profunda (deep) femoral vein. Dr. Dubois discussed these findings with Dr. Ribera at 12:05 PM. Reviewed, dictated and finalized at location A. IMPRESSION: 1. Small amount of above the knee nonocclusive deep venous thrombosis within t he profunda (deep) femoral vein. Dr. Dubois discussed these findings with Dr. Ribera at 12:05 PM.
--- OUTSIDE RECORDS SUMMARY | 2025-05-01 11:49 | XMS_ITS | Clinical Summary ---
Author Organization [facility] Address [address] [place] [address] Care Team Providers Care Ground School Instructor Name Role Phone Leonard Good MD Primary Care Provider +1- [phone] Social History Tobacco Use Types Packs/Day Years [...] Annual Medicare Wellness Visit 2023 PHQ-2 (Physician [place]) 07/10/2024 COVID-19 Vaccine (3 - 2024-2 6 [...] complete this topic Insurance ESSENCE Care Teams Ground School Instructor Relationship Specialty Start Date End Date Leonard Good MD [facility] [address] [address] PCP - General FAMILY PRACTICE 05/16/24
--- OUTSIDE RECORDS SUMMARY | 2025-05-01 11:49 | XMS_ITS | Clinical Summary ---
Author Organization [facility] [address] Address [address] [place] [address] Care Team Providers Care Steel Buffer Name Role Phone Olivia Good MD Primary [...] (12/09/2021): Added automatically from request for surgery [id number] Abnormal stress test 12/09/2021 Overview (12/09/2021): Added automatically from request for surgery [id number] Surgical History Surgery Date Site/Laterality Comments OTHER SURGICAL HISTORY vein surgery scrotum ROTATOR CUFF REPAIR Bilateral one side 1996 and other side 1995 CHOLECYSTECTOMY CARPAL TUNNEL RELEASE Left Medical History Medical History Date Comments Eczema Arthritis, lumbar spine Actinic keratoses Hypertension COPD (chronic obstructive pulmonary disease) [place] (myocardial infarction) (HCC) SOB (shortness of breath) [...] on file 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 [employer] 12/08/2023 [id number] / / [id number] Insurance [email or web address] ADVANTAGE CHOICE PPO Care Teams Steel Buffer Relationship Specialty Start Date End Date Olivia Good MD PCP - General Family Medicine 03/02/22
== END 2025-05-01 10:36 | disposition home or self-care (01) ==
PROVIDERS: PCP Family Medicine; Visit Provider Orthopaedic Surgery
DX: M79.604 Pain in right leg (principal); M79.89 Other specified soft tissue disorders
CPT/HCPCS: 93971

== ENCOUNTER 2025-05-14 09:05 | Outpatient (CLI) | payer OTHER, SELFPAY ==
--- NOTE | ~2025-05-14 | CT_ITS ---
EXAMINATION:CT lung screening DATE: 05/14/2025 09:30 INDICATION: Personal history of nicotine dependence. TECHNIQUE: Computed tomography (CT) of the chest was performed without intravenous contrast. Automated exposure control and iterative reconstruction technique were employed. The dose-length product (DLP) was 260.41 mGy-cm. COMPARISON: Chest CT 04/22/2024 FINDINGS: The lungs demonstrate mild atelectasis in right middle lobe. There are multiple 1-2 mm nodules in right lung. A calcified left lung nodule is consistent with old granulomatous disease. No pleural effusion. The heart size is normal. There are coronary artery calcifications. No pericardial effusion. There is mild bilateral gynecomastia. There is diffuse hepatic steatosis. There is mild thoracic spondylosis. IMPRESSION: 1. Lung-RADS category 2: Benign appearance or behavior. Continue annual screening with noncontrast low-dose chest CT in 12 months. Reviewed, dictated and finalized at location E. ANESTHESIA ROOM NURSE IMPRESSION: 1. Lung-RADS category 2: Benign appearance or behavior. Continue annual screeni ng with noncontrast low-dose chest CT in 12 months.
--- OUTSIDE RECORDS SUMMARY | 2025-05-14 09:38 | XMS_ITS | Clinical Summary ---
Author Organization [facility] [address] Address [address] [place] [address] Care Team Providers Care Registered Radiation Therapist Name Role Phone Olivia Good MD Primary [...] tablet by mouth nightly 90 tablet 5 05/08/20 Discontinued Active Problems Problem Noted Date Diagnosed Date Chest pain 12/09/2021 Overview (12/09/2021): Added automatically from request for surgery [id number] Abnormal stress test 12/09/2021 Overview (12/09/2021): Added automatically from request for surgery [id number] Surgical History Surgery Date Site/Laterality Comments OTHER SURGICAL HISTORY vein surgery scrotum ROTATOR CUFF REPAIR Bilateral one side 1996 and other side 1995 CHOLECYSTECTOMY CARPAL TUNNEL RELEASE Left Medical History Medical History Date Comments Eczema Arthritis, lumbar spine Actinic keratoses Hypertension COPD (chronic obstructive pulmonary disease) [place] (myocardial infarction) (HCC) SOB (shortness of breath) [...] on file 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 Gender Identity Not on file Sexual Orientation Not on file Last Filed Vital Signs Vital Sign Reading Time Taken Comments Blood Pressure 162/88 05/15/2024 8:29 AM PUBLIC IMPROVEMENT INSPECTOR Pulse 67 03/27/2024 8:47 AM CDT Temperature [...] Visit 65+ 2023 Covid-19 Vaccine (2 - 2024- season) 03/10/202502/2021 Influenza Vaccine (#1) 2025 06/08/2021 DTaP/Tdap/Td Vaccine (2 - Td or Tdap) 11/01/2026 Hepatitis B Screening Completed 04/05/2016 , 10/23/2015, 09/25/2015 Medical Devices Implanted Type Area Alteration Tailor Apprentice Device Identifier Shelf Expiration Date Model / Serial / Lot [employer] Device 10ml 5fr Closure Mynx Control 2 Mode Balloon Catheter [id number] - [id number] Implanted:Qty: 1 on 12/31/2021 by Nirav Stanton MD at [facility] [employer] 12/08/2023 [id number] / / [id number] Insurance [employer] CHOICE PPO Care Teams Registered Radiation Therapist Relationship Specialty Start Date End Date Olivia Good MD PCP - General Family Medicine 03/02/22
--- OUTSIDE RECORDS SUMMARY | 2025-05-14 09:38 | XMS_ITS | Clinical Summary ---
Author Organization [facility] Address [address] [place] [address] Care Team Providers Care Investigator Claims Name Role Phone Leonard Good MD Primary Care Provider +1- [phone] Social History Tobacco Use Types Packs/Day Years [...] Annual Medicare Wellness Visit 2023 PHQ-2 (Physician [place]) 07/10/2024 COVID-19 Vaccine (3 - 2024-2 6 [...] complete this topic Insurance [employer] Care Teams Investigator Claims Relationship Specialty Start Date End Date Leonard Good MD [facility] [address] [address] PCP - General FAMILY PRACTICE 05/16/24
== END 2025-05-14 09:06 | disposition home or self-care (01) ==
PROVIDERS: PCP Family Medicine; Visit Provider Nurse Practitioner Family
DX: Z12.2 Encounter for screening for malignant neoplasm of respiratory organs (principal); Z87.891 Personal history of nicotine dependence
CPT/HCPCS: 71271

== ENCOUNTER 2025-06-19 11:11 | Outpatient (CLI) | payer OTHER, SELFPAY ==
--- NOTE | ~2025-06-19 | US_ITS ---
RIGHT LOWER EXTREMITY VENOUS DUPLEX Clinical History: M79.604 - Pain in right leg COMPARISON: TECHNIQUE: Grayscale, color, duplex/spectral Doppler sonography right leg FINDINGS: Right leg common femoral, femoral, popliteal, and calf veins compressible and color Doppler patent. Normal augmentation with distal compression. No internal echoes. IMPRESSION: 1. No right leg DVT. Reviewed, dictated and finalized at location R. PREAD FOLDER IMPRESSION: 1. No right leg DVT.
== END 2025-06-19 11:12 | disposition home or self-care (01) ==
PROVIDERS: PCP Family Medicine; Visit Provider Student in an Organized Health Care Education/Training Program
DX: M79.604 Pain in right leg (principal); R10.31 Right lower quadrant pain
CPT/HCPCS: 93971